=== PATIENT | male | born 1945 | race Caucasian/White ===

== ENCOUNTER 2016-07-17 03:34 | Inpatient (IN) | payer OTHER ==
[~2016-07-17] VITALS: Ht 175.3 cm; Wt 150.6 kg
--- NOTE | 2016-07-17 03:37 | ED DYSPNEA/ASTHMA COMPLAINT ---
History of Present Illness General Chief Complaint: Dyspnea (COPD, CHF, Other) Stated Complaint: BIBA DIFF BREATHING Source: patient, old records, EMS Exam Limitations: no limitations Vital Signs & Intake/Output Vital Signs & Intake/Output Vital Signs Date Time Temp Pulse Resp B/P B/P Pulse O2 O2 Flow FiO2 Mean Ox Delivery Rate 07/18 527 98.7 138 18 128/85 91 Ventilator 45% 07/17 0453 20 95 Venti Mask 45% 07/179 99 Part 60% ReBreather 07/17 404 138 158/113 07/17 0346 97.5 128 22 184/96 99 Part 60% ReBreather Allergies Coded Allergies: meperidine (From DEMEROL) (Intermediate, NAUSEA 07/17/16) penicillin G (Intermediate, NAUSEA 07/17/16) Reconcile Medications Diltiazem HCl (Diltiazem 24HR ER) 120 MG CAP.ER.24H 1 CAP PO DAILY AFIB ( Reported) Furosemide 20 MG TABLET 1.5 TAB PO DAILY WATER PILL (Reported) Losartan Potassium 25 MG TABLET 1 TAB PO DAILY HTN (Reported) Metoprolol Succinate 100 MG TAB.ER.24H 1 TAB PO DAILY HTN (Reported) Rivaroxaban (Xarelto) 20 MG TABLET 1 TAB PO DAILY BLOOD THINNER (Reported) with food Triage Nurses Notes Reviewed? yes Onset: Gradual Duration: day(s):, getting worse, waxing and waning Timing: recent history Severity: moderate, severe Activities at Onset: none Prior Episodes/Possible Cause: occasional episodes Modifying Factors: Worsens With: movement. HPI: 71 yo gentleman h/o afib, chf, copd, presents with tachypnea, breathlessness, shortness of breath since yesterday. "It was really bad... I can't even walk... And I can't breathe if I lie flat.... It got really bad tonight." The medics noted that he was tripoding, breathless, unable to speak in complete sentences. He notes no fever, chills, nausea, vomiting, diarrhea, chest pain. Past History Travel History Traveled to [place] past 21 day No Medical History Any Pertinent Medical History? see below for history Cardiovascular: AFIB, CHF, hypertension, hyperlipidemia Endocrine: diabetes Surgical History Surgical History: non-contributory Psychosocial History Who do you live with Father Services at Home None What is your primary language Icelandic Family History Hx Contributory? No Review of Systems Review of Systems Constitutional: Reports: no symptoms. EENTM: Reports: no symptoms. Respiratory: Reports: no symptoms. Cardiovascular: Reports: no symptoms. GI: Reports: no symptoms. Genitourinary: Reports: no symptoms. Musculoskeletal: Reports: no symptoms. Skin: Reports: no symptoms. Neurological/Psychological: Reports: no symptoms. Hematologic/Endocrine: Reports: no symptoms. Immunologic/Allergic: Reports: no symptoms. All Other Systems: Reviewed and Negative Physical Exam Physical Exam General Appearance: well developed/nourished, moderate distress Head: atraumatic, normal appearance Eyes: Bilateral: normal appearance. Ears, Nose, Throat: normal pharynx Neck: normal inspection Respiratory: decreased breath sounds Cardiovascular: regular rate/rhythm Gastrointestinal: normal bowel sounds, soft, non-tender Extremities: 2-3+ pedal edema symmetrical Neurologic/Psych: no motor/sensory deficits, awake, alert, oriented x 3 Skin: intact, normal color, cyanosis Core Measures ACS in differential dx? No Severe Sepsis Present: No Septic Shock Present: No Progress Differential Diagnosis: asthma, bronchitis, CHF, COPD, afib with rapid ventricular response Plan of Care: Orders Procedure Date/time Status Nothing by Mouth 07/17 B Active EKG 07/17 1600 Active EKG 07/17 1000 Active Pathway - chart 07/17 05 Active House Staff 07/17 0522 Active Patient Data 07/17 0522 Active LOWER RESPIRATORY CULTURE 07/17 0512 Active BLOOD CULTURE 07/17 05 Active Patient Data 07/17 0500 Active Saline Lock 07/17 0455 Active Misc Message 07/17 0455 Active ED Holding Orders 07/17 0455 Active Admit to inpatient 07/17 0455 Active Vital Signs 07/17 0455 Active Code Status 07/17 0455 Active Ku, Insertion/Removal/Asses 07/17 0413 Active CULTURE,URINE 07/17 0413 Active URINALYSIS 07/17 0413 Complete FingerStick- Glucose 07/17 0409 Active EKG 07/17 0348 Active ARTERIAL BLOOD GAS (GEN) 07/17 0344 Active TROPONIN LEVEL 07/17 0337 Complete PARTIAL THROMBOPLASTIN TIME 07/17 0337 Complete PROTHROMBIN TIME 07/17 0337 Complete COMPREHENSIVE METABOLIC PANEL 07/17 0337 Complete CBC WITHOUT DIFFERENTIAL 07/17 0337 Complete B-TYPE NATRIURETIC PEP (BNP) 07/17 0337 Complete TRC EVALUATION (GEN) 07/17 UNK Active Saline Lock 07/17 UNK Active Weight 07/17 UNK Active VTE Mechanical Prophylaxis 07/17 UNK Active Vital Signs 07/17 UNK Active Telemetry/Body Team Member 07/17 UNK Active Intake & Output 07/17 UNK Active Current Medications Sig/Serafin Start time Last Medication Dose Stop Time Status Admin Diltiazem HCl 125 MG Q12H 07/17 0400 AC 07/17 (Cardizem DRIP) 0442 Sodium Chloride 100 ML (Normal Saline 0.9%) Laboratory Tests 07/17/16 0428: Urinalysis LIGHT H, Urine Color YEL, Urine Clarity CLEAR, Urine pH 6.0, Ur Specific [place] 1.015, Urine Protein 100 H, Urine Ketones NEG, Urine Nitrite NEG, Urine Bilirubin NEG, Urine Urobilinogen 0.2, Ur Leukocyte Esterase NEG, Ur Microscopic SEDIMENT EXAMINED, Urine RBC 5-10 H, Urine WBC 1-3 H, Urine Bacteria FEW H, Urine Hemoglobin MOD H, Urine Glucose NEG 07/17/16 0345: pH 7.42, pCO2 31 L, pO2 134 H, HCO3 19 L, ABG O2 Sat (Measured) 97.0, P-50 ( Temp Corrected) Y, Carboxyhemoglobin 1.1 L, O2 Concentration % 60%, Temperature 97.5, O2 Delivery Method PRB, Phlebotomy Draw Site RIGHT RADIAL 07/17/16 034: Anion Gap 16, Estimated GFR > 60, BUN/Creatinine Ratio 14.5, Glucose 153 H, Calcium 9.2, Total Bilirubin 0.9, AST 40, ALT 45, Alkaline Phosphatase 147 H, Troponin I < 0.01, Enm-R-Aydcporpxpd Pept 688 H, Total Protein 8.3 H, Albumin 4.3, Globulin 4.0, Albumin/Globulin Ratio 1.1, PT 17.5 H, INR 1.68 H, APTT 41 H, CBC w Diff MAN DIFF ORDERED, RBC 6.01, MCV 79.3 L, MCH 25.6 L, RDW 18.3 H, MPV 6.6 L, Gran % 84.9 H, Lymphocytes % 8.4 L, Monocytes % 5.9, Eosinophils % 0.5, Basophils % 0.3, Absolute Granulocytes 14.6 H, Absolute Lymphocytes 1.4, Absolute Monocytes 1.0 H, Absolute Eosinophils 0.1, Absolute Basophils 0, Platelet Estimate INCREASED, Normocytic RBCs VERIFIED, Normochromic RBCs VERIFIED, PUBS MCHC 32.3 L Microbiology 07/18 511 LOWER RESP: Respiratory Culture - ORD 07/18 511 LOWER RESP: Gram Stain - ORD 07/18 511 BLOOD: Blood Culture - ORD 07/18 511 BLOOD: Blood Culture - ORD 07/17 0428 URINE ROUT: Urine Culture - RECD Diagnostic Imaging: Viewed by Me: Radiology Read. Discussed w/RAD: Radiology Read. CXR Impression: volume overload, cannot rule out infectious process. full report below Initial ED EKG: A. fib with rapid ventricular response Comments: PATIENT: ROSEMARY MORENO PRESENT AGE: 71 PATIENT ACCOUNT NO: [id number] : 46 LOCATION: [facility] ORDERING PHYSICIAN: ALLY JIMENEZ MD SERVICE DATE: 07/17/16 EXAM TYPE: RAD - XRY-PORTABLE CHEST XRAY EXAMINATION: XR PORTABLE CHEST CLINICAL INFORMATION: Dyspnea COMPARISON: 01/02/2015 TECHNIQUE: Portable frontal view of the chest was obtained. FINDINGS: Low lung volumes. The left hemidiaphragm is obscured likely from a combination of pleural effusion and airspace opacity. Small right pleural effusion. Central vascular prominence. Mild interstitial prominence. No pneumothorax. The cardiac silhouette appears enlarged. IMPRESSION: Findings are most suggestive of fluid overload with bilateral pleural effusions, left greater than right. Associated airspace opacities could represent alveolar edema, although infectious process is not excluded. DICTATED BY: CHERRI LYNCH MD DATE/TIME DICTATED:07/17/16405 PUSHER RUNNER:MYRON DATE/TIME TRANSCRIBED:07/17/16405 CONFIDENTIAL, DO NOT COPY WITHOUT APPROPRIATE AUTHORIZATION. <Electronically signed in Other Vendor System> SIGNED BY: CHERRI LYNCH MD 07/17 041 Departure Departure Disposition: STILL A PATIENT Condition: Stable Clinical Impression Primary Impression: CHF (congestive heart failure) Secondary Impressions: Atrial fibrillation with rapid ventricular response Referrals: YESENIA YUNG DO (PCP/Family) Departure Forms: Customer Survey General Discharge Information Admission Note Spoke With: JOSE MONZON MD Documentation of Exam: Documentation of any treatments & extenuating circumstances including Concerns Regarding Discharge (functional status, medication knowledge or non-compliance, living conditions, etc.) that warrant an admission rather than observation: Patient With evidence of volume overload as well as atrial fibrillation with rapid ventricular response. Given his history I think this is most consistent with CHF with concomitant A. fib with rapid ventricular response. He has no fever cough or phlegm. I do not believe he has pneumonia at this point. However, I would follow his temperature curve and symptoms. No need for heparin since he is artery on an anticoagulant. Cards consult this morning. Critical Care Note Critical Care Note Critical Care Time: 30-74 min Comments: pt on nitrates, diltiazem drip, lasix iv. 100% nrb initally.... weaned down to facemask, 40%
[2016-07-17 03:55] LABS: ABSOLUTE BASOPHIL COUNT 0 /CUMM (0.0-0.2); ABSOLUTE EOSINOPHIL COUNT 0.1 /CUMM (0.0-0.7); ABSOLUTE GRANULOCYTE CT 14.6 /CUMM (1.4-6.5); ABSOLUTE LYMPH COUNT 1.4 /CUMM (1.2-3.4); BASOPHIL % 0.3 % (0.0-2.0); EOSINOPHIL % 0.5 % (0-5); GRANULOCYTE % 84.9 % (42.2-75.2); HEMATOCRIT 47.7 % (42-52); MEAN CORPUSCULAR HGB 25.6 PG (27.0-31.0); MEAN CORPUSCULAR HGB CONC 32.3 G/DL (33.0-37.0); MEAN CORPUSCULAR VOLUME 79.3 FL (80.0-94.0); MEAN PLATELET VOLUME 6.6 FL (7.4-10.4); PLATELET COUNT 459 /CUMM (130-400); RBC DISTRIBUTION WIDTH 18.3 % (11.5-14.5); RED BLOOD CELL CT 6.01 /CUMM (4.70-6.10); WHITE BLOOD CELL COUNT 17.2 /CUMM (4.8-10.8)
--- NOTE | 2016-07-17 03:58 | NUR ---
PT BIBA FROM HOME C/O DIFFICULTY BREATHING. PER MEDIC PT STATES THAT HE USUALLY HAS DIFFICULTY BREATHING AND USUALLY WILL GO BACK TO SLEEP BUT TONIGHT PT COULD NOT CATCH HIS BREATH. PT DENIES CP. SANTIAGO SOLANO ESTABLISHED IV ACCESS LH#20. LABS DRAWN AND SENT ([facility], [place], [facility] ,[facility]) BS [address] JIMENEZ AT BEDSIDE FOR EVAL, PT PLACED ON A PARTIAL NON-REBREATHER AT 60% PER RT JAMESON. PTS AT BEDSIDE.
[2016-07-17 04:03] LABS: PT 17.5 SEC (9.4-12.5); PTT 41 SEC (25-37)
--- NOTE | 2016-07-17 04:09 | NUR ---
PT MEDICATED BY SANTIAGO SOLANO WITH 80MG IV LASIX AND 2GM NITRO BID ON LEFT CHEST PER EMAR
--- NOTE | 2016-07-17 04:11 | RADIOLOGY REPORT ---
EXAMINATION: XR PORTABLE CHEST CLINICAL INFORMATION: Dyspnea COMPARISON: 01/02/2015 TECHNIQUE: Portable frontal view of the chest was obtained. FINDINGS: Low lung volumes. The left hemidiaphragm is obscured likely from a combination of pleural effusion and airspace opacity. Small right pleural effusion. Central vascular prominence. Mild interstitial prominence. No pneumothorax. The cardiac silhouette appears enlarged. IMPRESSION: Findings are most suggestive of fluid overload with bilateral pleural effusions, left greater than right. Associated airspace opacities could represent alveolar edema, although infectious process is not excluded.
--- NOTE | 2016-07-17 04:18 | NUR ---
#18 SUDANESE HAMILTON INSERTED WITH 700ML CLEAR YELLOW URINE OUTPUT.
[2016-07-17] MEDS ORDERED: METOPROLOL SUC100 M2 PO (04:19)
[2016-07-17] MEDS ORDERED: XARELTO20 M2 PO (04:19)
[2016-07-17] MEDS ORDERED: DILTIAZEM 24HR120 MG PO (04:20)
[2016-07-17] MEDS ORDERED: LOSARTAN POTASS25 M1 PO (04:20)
[2016-07-17] MEDS ORDERED: FUROSEMIDE40 M1 PO (04:21)
--- NOTE | 2016-07-17 04:25 | NUR ---
URINE TRIO SENT TO LAB BY TAMIA BARROW
--- NOTE | 2016-07-17 04:42 | NUR ---
PT MEDICATED WITH A CARDIZEM DRIP 125MG @10ML/HR PER EMAR.
--- NOTE | 2016-07-17 04:51 | NUR ---
RESPIRATORY THERAPY NOTE: DECREASED FIO2 FROM 60% VIA PRB TO 45% VIA V/M.
--- NOTE | 2016-07-17 05:19 | History & Physical ---
SHONNA BETTENCOURT,[facility] 07/17/16 0519: General Information and HPI MD Statement: I have seen and personally examined ROSEMARY MORENO and documented this H&P. The patient is a 71 year old M who presented with a patient stated chief complaint of [shortness of breath]. Source of Information: patient, family History of Present Illness: Patient is a 71 year old make with PMH of atrial fibrillation on Xarelto, chronic diastolic HF, HTN, HLD, DM type 2 (not compliant with medication), morbid obesity, bladder stone, who has come to the ED after 4 days of progressively worsening shortness of breath, both on exertion and at rest, aggravated when lying flat, associated with increased lower extremity edema, also reported dizziness of one day, with no LOC or falls. Per the patient's at bedside, patient is unable to move more than a few steps due to severe SOB. Patient denies any chest pain or palpitation. Denies any recent symptoms of upper respiratory tract infection, no fever or chills, minimal coughing but no sputum production. Patient is minimally active at home, lives with , grand daughter and grand son. He uses walker at home for ambulation, his grand daughter does the cooking and pays attention to his food (to be low sugar and low sodium). Patient follows up with Dr. Reynolds and was supposed to see him tomorrow in the office. He does not see any other specialists. Patient takes Xarelto daily, is compliant with home medications except for diabetes control ( stopped taking metformin as it caused diarrhea and he was unable to set up appointment with his PCP - Dr. Yung). Patient also reports he has gout but it is not clear if he was given treatment and whether the diagnosis was confirmed. Currently does not report any joint pain. Allergies/Medications Allergies: Coded Allergies: meperidine (From DEMEROL) (Intermediate, NAUSEA 07/17/16) penicillin G (Intermediate, NAUSEA 07/17/16) Home Med list Diltiazem HCl (Diltiazem 24HR ER) 120 MG CAP.ER.24H 1 CAP PO DAILY AFIB ( Reported) Furosemide 20 MG TABLET 1.5 TAB PO DAILY WATER PILL (Reported) Losartan Potassium 25 MG TABLET 1 TAB PO DAILY HTN (Reported) Metoprolol Succinate 100 MG TAB.ER.24H 1 TAB PO DAILY HTN (Reported) Rivaroxaban (Xarelto) 20 MG TABLET 1 TAB PO DAILY BLOOD THINNER (Reported) with food Past History Travel History Traveled to [place] past 21 day No Medical History Cardiovascular: AFIB, diastolic CHF, hypertension Endocrine: diabetes, obesity Surgical History Surgical History: non-contributory Past Family/Social History Family History Relations & Conditions if any Relation not specified for: *No pertinent family history Psychosocial History Services at Home: None Smoking Status: Former Smoker (1-2 pack/day, quit 15 yrs ago) ETOH Use: denies use Illicit Drug Use: denies illicit drug use Review of Systems Review of Systems Constitutional: Reports: weakness. Denies: chills, fever. EENTM: Reports: no symptoms. Cardiovascular: Reports: orthopena, peripheral edema. Denies: chest pain, palpitations, syncope. Respiratory: Reports: orthopnea, short of breath. Denies: cough, sputum production, stridor, wheezing. GI: Denies: abdominal pain, nausea, vomiting. Genitourinary: Reports: no symptoms. Musculoskeletal: Reports: no symptoms. Skin: Reports: no symptoms. Neurological/Psychological: Reports: no symptoms. Hematologic/Endocrine: Reports: no symptoms. Exam & Diagnostic Data Last 24 Hrs of Vital Signs/I&O Vital Signs Date Time Temp Pulse Resp B/P B/P Pulse O2 O2 Flow FiO2 Mean Ox Delivery Rate 07/17 0644 96.3 119 18 117/70 94 Venti Mask 45% 07/17 0528 98.7 138 18 128/85 91 Ventilator 45% 07/17 0453 20 95 Venti Mask 45% 07/17 0409 99 Part 60% ReBreather 07/17 0405 138 158/113 07/17 0346 97.5 128 22 184/96 99 Part 60% ReBreather Intake & Output 07/17 0800 07/17 0000 07/16 1600 Intake Total Output Total 2900 Balance -2900 Output, Urine 2900 Patient 167.829 kg Weight Weight Reported by Patient Measurement Method Physical Exam General Appearance Alert, Oriented X3, Cooperative, Moderate Distress Skin No Significant Lesion Skin Temp/Moisture Exam: Warm/Dry Sepsis Skin Exam (color): Normal for Ethnicity HEENT Atraumatic, EOMI, Mucous Membr. moist/pink, pupild equal and reactive to light Neck Supple, JVD elevated at the level of the jaw Cardiovascular Normal S1, Normal S2, distant heart sounds, irregular, no murmur Lungs decreased air movement and decreased breath sounds, no wheezing and no rhonchi, no crackles Abdomen Normal Bowel Sounds, Soft Neurological Normal Speech, Normal Tone Extremities 2+ pitting edema on bilaterall lower extremities Vascular Pulses Symmetrical Last 24 Hrs of Labs/Josep: Laboratory Tests 07/17/16 0609: D-Dimer Cancelled 07/17/16 0428: Urinalysis LIGHT H, Urine Color YEL, Urine Clarity CLEAR, Urine pH 6.0, Ur Specific Liberty 1.015, Urine Protein 100 H, Urine Ketones NEG, Urine Nitrite NEG, Urine Bilirubin NEG, Urine Urobilinogen 0.2, Ur Leukocyte Esterase NEG, Ur Microscopic SEDIMENT EXAMINED, Urine RBC 5-10 H, Urine WBC 1-3 H, Urine Bacteria FEW H, Urine Hemoglobin MOD H, Urine Glucose NEG 07/17/16 0345: pH 7.42, pCO2 31 L, pO2 134 H, HCO3 19 L, ABG O2 Sat (Measured) 97.0, P-50 ( Temp Corrected) Y, Carboxyhemoglobin 1.1 L, O2 Concentration % 60%, Temperature 97.5, O2 Delivery Method PRB, Phlebotomy Draw Site RIGHT RADIAL 07/17/16 0340: Anion Gap 16, Estimated GFR > 60, BUN/Creatinine Ratio 14.5, Glucose 153 H, Uric Acid 9.5 H, Calcium 9.2, Total Bilirubin 0.9, AST 40, ALT 45, Alkaline Phosphatase 147 H, Troponin I < 0.01, Kbj-Q-Zcztqbedcla Pept 688 H, Total Protein 8.3 H, Albumin 4.3, Globulin 4.0, Albumin/Globulin Ratio 1.1, PT 17.5 H, INR 1.68 H, APTT 41 H, D-Dimer 339 H, CBC w Diff MAN DIFF ORDERED, RBC 6.01, MCV 79.3 L, MCH 25.6 L, RDW 18.3 H, MPV 6.6 L, Gran % 84.9 H, Lymphocytes % 8.4 L, Monocytes % 5.9, Eosinophils % 0.5, Basophils % 0.3, Absolute Granulocytes 14.6 H, Absolute Lymphocytes 1.4, Absolute Monocytes 1.0 H, Absolute Eosinophils 0.1, Absolute Basophils 0, Platelet Estimate INCREASED, Normocytic RBCs VERIFIED, Normochromic RBCs VERIFIED, PUBS MCHC 32.3 L Microbiology 07/18 639 BLOOD: Blood Culture - RECD 07/17 634 BLOOD: Blood Culture - RECD 07/17 610 URINE ROUT: Legionella Antigen - ORD 07/17 610 URINE ROUT: Streptococcus pneumoniae Antigen (M - ORD 07/18 511 LOWER RESP: Respiratory Culture - ORD 07/18 511 LOWER RESP: Gram Stain - ORD 07/17 0428 URINE ROUT: Urine Culture - RECD Diagnostic Data EKG Results Atrial fibrillation, rate of 150, QTC of 500, left axis deviation, Poor R-wave progression. CXR Results SERVICE DATE: 07/17/16 EXAM TYPE: RAD - XRY-PORTABLE CHEST XRAY EXAMINATION: XR PORTABLE CHEST CLINICAL INFORMATION: Dyspnea COMPARISON: 01/02/2015 TECHNIQUE: Portable frontal view of the chest was obtained. FINDINGS: Low lung volumes. The left hemidiaphragm is obscured likely from a combination of pleural effusion and airspace opacity. Small right pleural effusion. Central vascular prominence. Mild interstitial prominence. No pneumothorax. The cardiac silhouette appears enlarged. IMPRESSION: Findings are most suggestive of fluid overload with bilateral pleural effusions, left greater than right. Associated airspace opacities could represent alveolar edema, although infectious process is not excluded. Assessment/Plan Assessment: Patient is a 71 year old male with PMH of atrial fibrillation on Xarelto, chronic diastolic , HTN, HLD, DM type 2 (not compliant with medication), morbid obesity, bladder stone, questionable gout, who came to the ED with progressive SOB on ambulation and at rest, LE edema, orthopnea, with acute worsening of symptoms since 4 days ago and dizziness of one day. Patient is admitted to telemetry for possible CHF exacerbation and for Afib with RVR. Problem list and plan: Shortness of breath, most likely due to CHF exacerbation Underlying (impaired LV relaxation per Echo in 2010). Current CXR suggests pleural effusion, pt also has LE edema, orthopnea, ProBNP of 688. Denies chest pain, reports dizziness. Other etiology: Possible PE, Sudden onset worsening SOB, sedentary lifestyle due to obesity and underling heart failure. also LE edema. D-dimer elevated to 339. ABG: mild respiratory alkalosis. Patient also has a smoking history,50 years 1-2 packs/day and quit 15 years ago. Does not recall any diagnosis of COPD, exam does not have wheezing. * Rule out ACS with serial troponin and EKG * IV lasix BID 40 mg * Echocardiogram * Cardiology consult with Dr. Reynolds * LE doppler to rule out DVT * consider CTA (however Cr slightly elevated to 1.1) * Blood culture, sputum culture, strep. pneumonia and legionella antigens * TRC/Nebs Leukocytosis No fever, no URI symptoms. Reported some chills a few days ago when he slept with windows open. * Continue to monitor vital signs * Repeat CBC and watch off antibiotics Atrial fibrillation EKG consistent with Atrial fibrillation with rate of 150, QTc 500 Patient is on cardizem 120 mg daily and metoprolol 100 mg daily. * started on cardizem drip * continue metoprolol * cardiology consult * continue xarelto DM2 Not taking Metformin (stopped due to side effects) * fingersticks TID AC * novolog sliding scale HTN * continue losartan, metoprolol, furosemide Morbid obesity, HLD Patient reports he gained a lot of weight since he quit smoking 15 years ago. He smoked for almost 50 years 1-2 packs/day * lipid profile * start on atorvastatin (was prescribed statin but reports he never took it) * counseling for weight loss Questionable gout Patient pain in several joints of the LEs, currently absent. Reports he has gout but does not recall if this was diagnosed by a doctor; also he has not taken any medication for a possible gout. * Will check Uric acid * will monitor for signs/symptoms of gout Diet: NPO, patient is on ventimask Pain: mild pain pathway Full code As Ranked By This Provider Problem List: 1. Morbid obesity 2. Paroxysmal atrial fibrillation 3. Atrial fibrillation with rapid ventricular response 4. CHF (congestive heart failure) 5. Dyslipidemia 6. Shortness of breath 7. Hypertension Core Measures/Miscellaneous Acute Coronary Syndrome ACS Diagnosis: No Cerebrovascular Accident CVA/TIA Diagnosis: No Congestive Heart Failure CHF Diagnosis: Yes Date of most recent Echo: 03/07/11 Last Known EF %: 60 Venous Thromboembolism VTE Risk Factors: Acute medical illness, Age > 40 No [facility] VTE prophylaxis d/t: VTE low risk, No contraindications No VTE Pharm Prophylaxis d/t: VTE low risk, No contraindications VTE Diagnosis: No VTE Type: NONE VTE Confirmed by (Test): NONE Severe Sepsis Severe Sepsis Present: No Septic Shock Septic Shock Present: No Miscellaneous Documentation Attending Case Discussed With: KEVIN RODRIGUEZ MD Primary Care Physician: YESENIA YUNG DO Patient sees these Specialists Dr. Reynolds Level of Patient Care: Telemetry YAMINI NOGUEIRA 07/17/16 0536: Resident Review Statement Resident Statement: examined this patient, discussed with summer intern, agreed with summer intern, reviewed EMR data (avail), reviewed images Other Findings: This is a 89-[id number]-vnn-year-old morbidly obese male previous alcoholic, previous smoker (quit 15 years ago), no illicit drug abuse with past medical history of hypertension, hyperlipidemia, gout, diabetes mellitus, atrial fibrillation on rate control with metoprolol and diltiazem and anticoagulation with Xarelto came in with chief complaint of worsening shortness of breath since 4 days prior to admission. The patient says that he did have some shortness of breath at baseline however 4 days prior to admission he suddenly started feeling more short of breath.He said that the shortness of breath initially started getting worse on exertion now was present on sitting as well.He was unable to lie down as this would worsen the shortness of breath. Sitting made him feel better.He did have episodes of paroxysmal nocturnal dyspnea where he had to get up in the middle of the night to catch up some breathing. He denied any chest pain. He said that he noticed that the emergency department that his legs were swelling worse. As per the he has been extremely short of breath however he was avoiding to come to the hospital. Finally they called the EMS and was brought in by ambulance. He denied any chest pain,fever, chills,diarrhea, constipation, abdominal pain, urinary complaints. Vitals on presentation he was afebrile at 97.5, pulse of 128-138, respiratory rate of 22, blood pressure of initially 184/96, later came down to 158/113, he was initially placed on the partial nonrebreather, when we saw him he was on 45% Ventimask with saturations around 95%. ABG : 7.42/31/134/19 Physical exam morbidly obese person in great distress, on BiPAP, short of breath with CVS S1 and S2 present, irregularly irregular rhythm. RS, air entry decreased bilateral lower lung bases, crackles heard bilaterally, no wheezing heard. Per abdomen : Very obese, bowel sounds present, no tenderness, soft nontender. Bilateral lower extremity 2+ edema present urine Swollen right toe noted, mild redness. Significant labs white count of 19.2, no bands, H/H of 15.4/47.7, platelet of 459. Electrolytes within normal limit, BUN/creatinine 16/1.1, glucose of 153. ProBNP elevated at 688, alkaline phosphatase 147. Chest x-ray showed fluid overload with bilateral pleural effusions left more than light associated with airspace opacity, could not completely rule out infection. EKG showed atrial fibrillation with rate of 150, QTC of 500, left axis deviation., Poor R-wave progression. UA showed 1-3 WBCs, few bacteria and moderate hemoglobin. Last echocardiogram was done in 03/07/2014 which showed mild LVH, no diastolic dysfunction and systolic function of 60%. Note patient is allergic to penicillin and has to be an anaphylactic reaction. Meperidine gives nausea. Dr Yung - primary care and Dr. Reynolds is his multimedia services coordinator. He does not see any other doctors. As per the patient he did have an exercise stress test with Dr. Reynolds however does not remember when this was. we will admit the patient to cardiac telemetry floor for treatment of the following problems. Problem #1 shortness of breath most likely secondary to CHF exacerbation, possible pneumonia.Patient has bilateral fluid overload with pleural effusions, proBNP elevated at 688, bilateral pedal edema noted paroxysmal nocturnal dyspnea present on history, most likely the shortness of breath seems to be secondary to CHF exacerbation. * There is a possibility that he might have pneumonia along with that, curb - 65 score noted to be 1. * Other possibility is pulmonary embolus. Patient has mildly elevated creatinine at 1.1. Will check d-dimer and bilateral lower extremity Doppler. Further need for CTA after results of the above tests. * He has a white count with no bands however he does not have any fever, vitals are stable. * Continue treat off antibiotics for now. * Check blood cultures, sputum cultures, strep pneumonia and legionella antigen. * Continue to follow cultures and treat if suspicion for pneumonia. * Continue to monitor intakes and outputs strictly, continue to monitor daily weights, continue IV diuresis with 40 mg of IV Lasix twice a day. * Continue to monitor intakes and outputs and maintain negative fluid balance. * Trend EKg/troponin and r/o ACS. * Repeat Echo Problem #2 history of hypertension. * Continue lisinopril at home dosage. Problem #3 history of hyperlipidemia. * Patient is not very clear if he is taking statin, came history does show statin prescribed however does not show the name of the prescriber. Will need to be clarified. Problem #4 history of atrial fibrillation with RVR. * Patient was noted to be in atrial fibrillation at the emergency department. * Patient was started on IV Cardizem. * IV Cardizem rate was increased to 15 g per mL to keep the heart rate less than 100, ct ot monitor closely. * Continue anticoagulation with Xarelto. * Patient is on by mouth diltiazem 120 mg and metoprolol 100 mg daily for rate control at home. * Cardiology consult with Dr. Reynolds in a.m. Full code. DVT prophylaxis with Xarelto. Heart healthy diet, however the patient is nothing by mouth now as he is on Ventimask. Mild pain pathway. KEVIN PRETTY MD 07/17/16 9018: Attending MD Review Statement Attending Statement Attending MD Statement: examined this patient, discuss w/resident/PA/AIR VICE MARSHAL, agreed w/resident/PA/AIR VICE MARSHAL, discussed with family, reviewed EMR data (avail), discussed with nursing, reviewed images, amended to note Attending Assessment/Plan: The patient is a 71 yo male with/o atrial fibrillation (on Xarelto), chronic preserved ejection fraction CHF, HTN, HL, gout and obesity who presented on the day of admission in the ED with c/o severe dyspnea. He had a recent gout attack involving both feet/ankles and was having difficulty ambulating and was unable to get in to see a physician. He held his furosemide and treated himself with "clifford juice". He presents with 4 day h/o increased dyspnea and edema. In the ED he was noted to be tachycardic (138 HR RVR) in afib and hypoxic. He denied any fever, chest pain, cough or dysuria. Physical Exam: VS: T 97.5, P 138-119, R 22-18, BP 184/96-117/70 (post meds), PO 99% on NRB and 94% on 45% VM HEENT: eyes- PERRLA, EOMI corazon- moist mucosa w/o lesions Neck: + JVD, no bruits Chest: decreased BS diffusely, ? few rales at bases Cor: tachy, irreg, nl S1, S2 Abd: BS+, soft, NT Ext: 2+ edema bilat, pulses 2+ Neuro: alert & oriented x 3, non-focal Labs/Tests- as above Impression/Plan: #Acute on Chronic Preserved Ejection Fraction CHF- secondary to atrial fibrillation with RVR. Patient had held his furosemide at home (due to gout). Plan: Admit to telemetry floor. IV Furosemide (given in ED). I/O's, daily weights as per protocol for CHF. Check serial troponin I's. Cardiology consult with Dr. Reynolds. #Acute Hypoxic Respiratory Failure- secondary to CHF. Plan: Oxygen support and will titrate down as able with pulse ox monitoring. #Atrial Fibrillation- with rapid ventricular response. Plan: Rate control with Cardizem drip (IV) and Metoprolol as per Cardiology. Treat CHF as above. Continue Xarelto. #Essential Hypertension- BP initially elevated, however decreased with meds. Plan: Continue Cardizem/Furosemide/Metoprolol/Lisinopril and follow. #Leukocytosis- may be stress demargination of leukocytes. No clinical infection. Plan: Will obtain cultures as above and follow-up WBC in morning. #Gout- no symptoms at present. Had recent exacerbation in feet/ankles. Plan: Will follow and treat if recurs.
--- NOTE | 2016-07-17 05:30 | NUR ---
HOUSE STAFF IN FOR EVAL
[2016-07-17] MEDS ORDERED: FUROSEMIDE20 M1 PO (05:39)
--- NOTE | 2016-07-17 06:14 | NUR ---
THIS RN SPOKE WITH RESIDENT EUGENIA WHO STATED SHE WOULD LIKE THE CARDIZEM DRIP INCREASED TO 15ML/HR.
--- NOTE | 2016-07-17 06:52 | NUR ---
THIS RN GAVE REPORT TO SANTIAGO LLANES WHO POLITELY ASKED TO SEND THE PT TO THE FLOOR AFTER MORNING REPORT ON TELE UNIT.
--- NOTE | 2016-07-17 07:20 | NUR ---
ASSUMED CARE OF PT PT AWAKE, ALERT AND CONVERSANT WITH NO COMPLAINTS HR FLUCTUATES ON MONITOR BETWEEN 99-134. SAT 94% ON VENTI MASK. US TECH TO COME OVER FOR US LEGS; KATE FROM ECHO CALLED AND INFORMED US IS CURRENTLY IN ROOM - STATES HE WILL GET PATIENT LATER FOR ECHO. AWAITING TRANSPORT TO FLOOR.
--- NOTE | 2016-07-17 07:50 | NUR ---
SPOKE WITH RN MAYO - STATES OK TO BRING PT UPSTAIRS, WHEN US IS COMPLETED. TRANSPORT BOOKED.
--- NOTE | 2016-07-17 08:08 | PN- Student ---
Subjective Subjective: I examined Mr. Conley this morning in the ED and then again on the floor. He states that he is feeling better than he was earlier in the morning and that his breathing is getting easier. He denies chest pain, palpitations, headaches, vision changes, and hearing difficulties. He also has no abdominal pain, nausea, vomiting, or disturbances with bowel movements. His only complaint was slight left shoulder pain that he attributes to bursitis that has been more of a chronic issue for him. Objective Objective: Vital Signs Date Time Temp Pulse Resp B/P B/P Pulse O2 O2 Flow FiO2 Mean Ox Delivery Rate 07/17 0733 98.1 137 22 157/93 94 07/17 0644 96.3 119 18 117/70 94 Venti Mask 45% 07/17 0528 98.7 138 18 128/85 91 Ventilator 45% 07/17 0453 20 95 Venti Mask 45% 07/17 0409 99 Part 60% ReBreather 07/17 0405 138 158/113 07/17 0346 97.5 128 22 184/96 99 Part 60% ReBreather Intake & Output 07/17 1600 07/17 0800 07/17 0000 Intake Total Output Total 2900 Balance -2900 Output, Urine 2900 Patient 370 lb Weight Weight Reported by Patient Measurement Method Telemetry: Admission Labs: ProBNP- 688, Alk. Phos.-147, WBC- 19.2, D-dimer- 339 CXR: fluid overload, bilateral pleural effusions, infection can not be ruled out. EKG: atrial fibrillation w/ rate of 150. QTc- 500, left axis deviation. Venous doppler: normal triflex scan PE: general- alert and oriented x 3, good mental state. No acute distress. HEENT- PEERLA, atraumatic, membranes moist and pink. Neck- obese, no lymphadenopathy, no thyromegaly, midline trachea CV- S1 and S2 heard, rapid irregular rhythm, no murmurs or rubs Chest- labored breathing with decreased breathsounds Abd- bowel sounds heard, soft and non-tender to palpation, percussion normal Skin- warm and well perfused, no lesions noted Ext- 2+ edema in LE bilaterally up to knee, Left shoulder pain around AC joint on palpation (supraspinatus tendonosis or bursitis likely) Neuro- 5/5 strength of UE bilaterally, sensation intact in all 4 extremities Results Results: Laboratory Tests 07/17/16 0609: D-Dimer Cancelled 07/17/16 0428: Urinalysis LIGHT H, Urine Color YEL, Urine Clarity CLEAR, Urine pH 6.0, Ur Specific [place] 1.015, Urine Protein 100 H, Urine Ketones NEG, Urine Nitrite NEG, Urine Bilirubin NEG, Urine Urobilinogen 0.2, Ur Leukocyte Esterase NEG, Ur Microscopic SEDIMENT EXAMINED, Urine RBC 5-10 H, Urine WBC 1-3 H, Urine Bacteria FEW H, Urine Hemoglobin MOD H, Urine Glucose NEG 07/17/16 0345: pH 7.42, pCO2 31 L, pO2 134 H, HCO3 19 L, ABG O2 Sat (Measured) 97.0, P-50 ( Temp Corrected) Y, Carboxyhemoglobin 1.1 L, O2 Concentration % 60%, Temperature 97.5, O2 Delivery Method PRB, Phlebotomy Draw Site RIGHT RADIAL 07/17/16 0340: Anion Gap 16, Estimated GFR > 60, BUN/Creatinine Ratio 14.5, Glucose 153 H, Uric Acid 9.5 H, Calcium 9.2, Total Bilirubin 0.9, AST 40, ALT 45, Alkaline Phosphatase 147 H, Troponin I < 0.01, Nsh-A-Fqoemzvshrl Pept 688 H, Total Protein 8.3 H, Albumin 4.3, Globulin 4.0, Albumin/Globulin Ratio 1.1, PT 17.5 H, INR 1.68 H, APTT 41 H, D-Dimer 339 H, CBC w Diff MAN DIFF ORDERED, RBC 6.01, MCV 79.3 L, MCH 25.6 L, RDW 18.3 H, MPV 6.6 L, Gran % 84.9 H, Lymphocytes % 8.4 L, Monocytes % 5.9, Eosinophils % 0.5, Basophils % 0.3, Absolute Granulocytes 14.6 H, Absolute Lymphocytes 1.4, Absolute Monocytes 1.0 H, Absolute Eosinophils 0.1, Absolute Basophils 0, Platelet Estimate INCREASED, Normocytic RBCs VERIFIED, Normochromic RBCs VERIFIED, PUBS MCHC 32.3 L Microbiology 07/18 639 BLOOD: Blood Culture - RECD 07/17 634 BLOOD: Blood Culture - RECD 07/17 610 URINE ROUT: Legionella Antigen - ORD 07/17 610 URINE ROUT: Streptococcus pneumoniae Antigen (M - ORD 07/18 511 LOWER RESP: Respiratory Culture - ORD 05/11 0512 LOWER RESP: Gram Stain - ORD 07/17 0428 URINE ROUT: Urine Culture - RES Assessment/Plan Assessment: Mr. Conley is a morbidly obese 71 yo white male with a PMHx of a-fib (for which he takes xarelto), chronic diastolic HF (for which he sees Dr. Reynolds), HTN, HLD, type 2 DM (noncompliant w/metformin due to diarrhea), and gout ( patient reported). He also reports a bladder stone that does not cause him any symptoms. He was admitted to cardiac telemetry floor for a 4 day progressively worsening dyspnea at rest and exertion. After moving to the floor he seemed to be feeling a bit better. He is able to take a deep breath now which he couldnt do on admission. He is currently on max dose cardizem yet his heart rate is still tachycardic. Current Medications Sig/Serafin Start time Last Medication Dose Route Stop Time Status Admin Diltiazem HCl 5 MG ONCE ONE 07/17 1030 DC 07/17 IV PUSH 07/17 1031 1045 Diltiazem HCl 125 MG Q8H 07/17 0615 07/17 Sodium Chloride 100 ML IV 0707 Diltiazem HCl 125 MG Q12H 07/17 0400 DC 07/17 Sodium Chloride 100 ML IV 0442 Furosemide 0 .STK-MED ONE 07/17 0752 DC IV Furosemide 40 MG 7:30 AM, & 4:30 PM 07/17 0730 AC 07/17 IV 0815 Furosemide 80 MG ONCE ONE 07/17 0345 DC 07/17 IV 07/17 0346 0350 Furosemide 0 .STK-MED ONE 07/17 0344 DC IV Losartan Potassium 25 MG DAILY 07/17 1000 AC 07/17 PO 1045 Metoprolol Tartrate 5 MG ONCE ONE 07/17 1115 DC 07/17 IV 07/17 1116 1132 Metoprolol Tartrate 50 MG BID 07/17 1033 AC 07/17 PO 1044 Nitroglycerin 0 .STK-MED ONE 07/17 0345 DC TOP Nitroglycerin 2 GM STAT STA 07/17 0338 DC 07/17 TOP 07/17 0339 0350 Plan: During the day the patient had an acute bout of dyspnea and was given an IV push of 40mg lasix. Also had a stat chest xray showing none to slight improvement in pulmonary congestion from this morning. patient is currently in no pain. breathing is improving with diuresis. Will follow recommendations from cardiology as well as continue diuresis. Will schedule echocardiogram. Cardiology recommendations: -continue lasix IV 40 mg Q12 -monitor I&Os -continue cardizem drip 125mg/100ml Q8 IV -give metoprolol 5mg IV once followed by 50 mg PO BID -continue xarelto for anticoagulation -echocardiogram -daily BMP Problem List: 1. Progressive Dyspnea secondary to diastolic HF- continue lasix therapy 40 mg IV Q8 (BUN-16, Nurse Midwife/Clinical Instructor-1.1) 2. chronic diastolic HF- Echocardiogram and continue to diurese 3. Atrial fibrillation w/RVR- continue metoprolol and cardizem as above, continue anticoagulation and monitor INR. 4. HTN- continue home medications 5. Hyperlipidemia- refer to home dose of statin therapy 6. Type 2 DM- monitor blood glucose, insulin therapy as needed 7. Morbid Obesity- discuss healthy eating habits and possible diet and exercise options 8. Gout- symptoms resolving, continue to monitor. Diet: Heart healthy, NPO on ventimask DVT prophylaxis: patient on xarelto Code status: full code
--- NOTE | 2016-07-17 08:14 | NUR ---
MED WITH LASIX PER MAY. BP PRIOR 157/83. SAT REMAINS 94-96% ON VENTI MASK. HR REMAINS 105-128 AT THIS TIME DENIES COMPLAINTS. AWAITING TRANSPORT.
--- NOTE | 2016-07-17 08:36 | ULTRASOUND REPORT ---
EXAMINATION: US TRIPLEX OF LOWER EXTREMITIES, BILATERAL CLINICAL INFORMATION: Shortness of breath. Leg swelling. COMPARISON: None TECHNIQUE: Color-flow triplex imaging with spectral analysis and compression Doppler were performed on the lower extremities. FINDINGS: Respiratory variation, normal compression and augmented flow are noted throughout the lower extremities. The visualized common femoral vein, superficial femoral vein, profunda femoral vein, popliteal vein and midcalf peroneal and posterior tibial venous segments show no evidence of deep venous thrombosis. There is no Allan's cyst. IMPRESSION: Normal triplex scan without evidence of deep venous thrombosis involving the lower extremities.
--- NOTE | 2016-07-17 08:40 | NUR ---
TRANSPORTED TO [facility]-2 ON MONITOR WITH THIS RN PT CONVERSANT AND MAKING JOKES WITH STAFF THROUGHOUT TRANSPORT. HR 112-154 DURING TRANSPORT. 111 ON ARRIVAL TO ROOM. CARDIZEM INFUSING AT 15 ML/HR [place] DRAINING VENTI MASK AT 45%, SAT 96% PRIOR TO TRANSPORT CARE TRANSFERRED TO TELE [employer]BER
[2016-07-17 08:52] VITALS: BP 142/80
--- NOTE | 2016-07-17 10:57 | PN- Cardiology ---
Subjective Subjective: The patient is a 71-year-old male who follows up with me in the office for atrial fibrillation, diabetes mellitus, and diastolic heart failure. He notes that he has not been taking his Lasix recently because of a tach. The gout has resolved. He presents with complaint of worsening shortness of breath over the past few days. The shortness of breath is exacerbated by exertion and by lying flat. He also notes worsening lower extremity edema. He has had recent lightheadedness and dizziness. No chest pain. No cough. No fever or chills. No diaphoresis. No syncope. He was noted in the emergency department to be in atrial fibrillation with rapid ventricular rate, and to have evidence of acute diastolic heart failure exacerbation. Objective Vital Signs and I&Os Vital Signs Date Time Temp Pulse Resp B/P B/P Pulse O2 O2 Flow FiO2 Mean Ox Delivery Rate 07/18 0752 98.8 133 28 142/80 95 Ventilator 45% 07/17 0733 98.1 137 22 157/93 94 07/17 0644 96.3 119 18 117/70 94 Venti Mask 45% 07/17 0528 98.7 138 18 128/85 91 Ventilator 45% 07/17 0453 20 95 Venti Mask 45% 07/17 0409 99 Part 60% ReBreather 07/17 0405 138 158/113 07/17 0346 97.5 128 22 184/96 99 Part 60% ReBreather Intake & Output 07/17 1600 07/17 0800 07/17 0000 05/ 1600 07/16 0800 05 0000 Intake Total Output Total 280 2900 Balance -280 -2900 Output, Urine 280 2900 Patient 370 lb Weight Weight Reported by Patient Measurement Method Physical Exam: Gen: The patient is in no acute distress HEENT: Normal nose, ears, and oropharynx. Pupils equal bilaterally. Conjunctiva normal. Neck: Supple with no JVD, no masses, and no thyromegaly Lungs: Bilateral rales with normal respiratory effort Heart: RRR, S1, S2, 1/6 systolic murmur. 2+ peripheral edema, 1+ pulses in the lower extremities bilaterally Abdomen: Soft, nontender, no masses. No hepatomegaly. No splenomegaly Extremities: No clubbing or cyanosis. Normal muscle strength in the upper and lower extremities Skin: Normal skin turgor with no skin ulcers or lesions noted. Neuro: Cranial nerves intact. Sensation intact Psych: Alert and oriented 3 with appropriate affect Current Medications: Current Medications Sig/Serafin Start time Last Medication Dose Route Stop Time Status Admin Diltiazem HCl 5 MG ONCE ONE 07/17 1030 VT 07/17 IV PUSH 07/17 1031 1045 Diltiazem HCl 125 MG Q8H 07/17 0615 07/17 Sodium Chloride 100 ML IV 0707 Diltiazem HCl 125 MG Q12H 07/17 0400 VT 07/17 Sodium Chloride 100 ML IV 0442 Furosemide 0 .STK-MED ONE 07/17 0752 VT IV Furosemide 40 MG 7:30 AM, & 4:30 PM 07/17 0730 AC 07/17 IV 0815 Furosemide 80 MG ONCE ONE 07/17 0345 DC 07/17 IV 07/17 0346 0350 Furosemide 0 .STK-MED ONE 07/17 0344 VT IV Losartan Potassium 25 MG DAILY 07/17 1000 AC 07/17 PO 1045 Metoprolol Tartrate 50 MG BID 07/17 1033 AC 07/17 PO 1044 Nitroglycerin 0 .STK-MED ONE 07/17 0345 [facility] Nitroglycerin 2 GM STAT STA 07/17 0338 VT 07/17 TOP 07/17 0339 0350 Results Last 48 Hrs of Labs/Mics: Laboratory Tests 07/17/16 0609: D-Dimer Cancelled 07/17/16 0428: Urinalysis LIGHT H, Urine Color YEL, Urine Clarity CLEAR, Urine pH 6.0, Ur Specific [place] 1.015, Urine Protein 100 H, Urine Ketones NEG, Urine Nitrite NEG, Urine Bilirubin NEG, Urine Urobilinogen 0.2, Ur Leukocyte Esterase NEG, Ur Microscopic SEDIMENT EXAMINED, Urine RBC 5-10 H, Urine WBC 1-3 H, Urine Bacteria FEW H, Urine Hemoglobin MOD H, Urine Glucose NEG 07/17/16 0345: pH 7.42, pCO2 31 L, pO2 134 H, HCO3 19 L, ABG O2 Sat (Measured) 97.0, P-50 ( Temp Corrected) Y, Carboxyhemoglobin 1.1 L, O2 Concentration % 60%, Temperature 97.5, O2 Delivery Method PRB, Phlebotomy Draw Site RIGHT RADIAL 07/17/16 0340: Anion Gap 16, Estimated GFR > 60, BUN/Creatinine Ratio 14.5, Glucose 153 H, Uric Acid 9.5 H, Calcium 9.2, Total Bilirubin 0.9, AST 40, ALT 45, Alkaline Phosphatase 147 H, Troponin I < 0.01, Qzc-[id number]-Kfkmlpitneo Pept 688 H, Total Protein 8.3 H, Albumin 4.3, Globulin 4.0, Albumin/Globulin Ratio 1.1, PT 17.5 H, INR 1.68 H, APTT 41 H, D-Dimer 339 H, CBC w Diff MAN DIFF ORDERED, RBC 6.01, MCV 79.3 L, MCH 25.6 L, RDW 18.3 H, MPV 6.6 L, Gran % 84.9 H, Lymphocytes % 8.4 L, Monocytes % 5.9, Eosinophils % 0.5, Basophils % 0.3, Absolute Granulocytes 14.6 H, Absolute Lymphocytes 1.4, Absolute Monocytes 1.0 H, Absolute Eosinophils 0.1, Absolute Basophils 0, Platelet Estimate INCREASED, Normocytic RBCs VERIFIED, Normochromic RBCs VERIFIED, PUBS MCHC 32.3 L Recent Imaging Studies: Chest x-ray: Findings are most suggestive of fluid overload with bilateral pleural effusions, left greater than right. Associated airspace opacities could represent alveolar edema, although infectious process is not excluded. Assessment/Plan Assessment/Plan The patient is a 71-year-old male with history of atrial fibrillation, chronic diastolic heart failure, and gout who presents with acute HFpEF secondary to discontinuing Lasix. He is improving on IV Lasix. He is noted to be in atrial fibrillation with rapid ventricular rate. The ventricular rate remains uncontrolled on maximum dose of Cardizem drip. Plan: * Continue IV Lasix 40 mg every 12 hours * Monitor input and output with daily weights * Continue diltiazem drip * Give metoprolol 5 mg IV 1 followed by 50 mg by mouth twice a day for additional rate control. Of note, the patient is on both metoprolol and diltiazem as an outpatient for rate control. * Continue Xarelto for anticoagulation * Echocardiogram * Basic metabolic profile daily Continue telemetry? Yes
--- NOTE | 2016-07-17 11:02 | Cons- Cardiology ---
See Addendum General Information and HPI Consulting Request Date of Consult: 07/17/16 Requested By: KEVIN PRETTY MD Reason for Consult: CHF History of Present Illness: The patient is a 71-year-old male who follows up with me in the office for atrial fibrillation, diabetes mellitus, and diastolic heart failure. He notes that he has not been taking his Lasix recently because of a tach. The gout has resolved. He presents with complaint of worsening shortness of breath over the past few days. The shortness of breath is exacerbated by exertion and by lying flat. He also notes worsening lower extremity edema. He has had recent lightheadedness and dizziness. No chest pain. No cough. No fever or chills. No diaphoresis. No syncope. He was noted in the emergency department to be in atrial fibrillation with rapid ventricular rate, and to have evidence of acute diastolic heart failure exacerbation. Allergies/Medications Allergies: Coded Allergies: meperidine (From DEMEROL) (Intermediate, NAUSEA 07/17/16) penicillin G (Intermediate, NAUSEA 07/17/16) Home Med List: Diltiazem HCl (Diltiazem 24HR ER) 120 MG CAP.ER.24H 1 CAP PO DAILY AFIB ( Reported) Furosemide 20 MG TABLET 1.5 TAB PO DAILY WATER PILL (Reported) Losartan Potassium 25 MG TABLET 1 TAB PO DAILY HTN (Reported) Metoprolol Succinate 100 MG TAB.ER.24H 1 TAB PO DAILY HTN (Reported) Rivaroxaban (Xarelto) 20 MG TABLET 1 TAB PO DAILY BLOOD THINNER (Reported) with food Current Medications: Current Medications Sig/Serafin Start time Last Medication Dose Route Stop Time Status Admin Diltiazem HCl 5 MG ONCE ONE 07/17 1030 DC 07/17 IV PUSH 07/17 1031 1045 Diltiazem HCl 125 MG Q8H 07/17 0615 AC 07/17 Sodium Chloride 100 ML IV 0707 Diltiazem HCl 125 MG Q12H 07/17 0400 DC 07/17 Sodium Chloride 100 ML IV 0442 Furosemide 0 .STK-MED ONE 07/17 0752 DC IV Furosemide 40 MG 7:30 AM, & 4:30 PM 07/17 0730 AC 07/17 IV 0815 Furosemide 80 MG ONCE ONE 07/17 0345 DC 07/17 IV 07/17 0346 0350 Furosemide 0 .STK-MED ONE 07/17 0344 DC IV Losartan Potassium 25 MG DAILY 07/17 1000 AC 07/17 PO 1045 Metoprolol Tartrate 50 MG BID 07/17 1033 AC 07/17 PO 1044 Nitroglycerin 0 .STK-MED ONE 07/17 0345 [facility] Nitroglycerin 2 GM STAT STA 07/17 0338 DC 07/17 TOP 07/17 0339 0350 Review of Systems Review of Systems: No rash. No tremor. No fever. No chills. All other systems were reviewed, and were noted to be negative. Past History Travel History Traveled to [place] past 21 day No Medical History Cardiovascular: AFIB, diastolic CHF, hypertension Endocrine: diabetes, obesity Surgical History Surgical History: non-contributory Family History Relations & Conditions If Any: Relation not specified for: *No pertinent family history Family History Reviewed? Family history was reviewed with patient, and there are no componentws relevant to the current admission. Psychosocial History Services at Home: None Smoking Status: Former Smoker (1-2 pack/day, quit 15 yrs ago) ETOH Use: denies use Illicit Drug Use: denies illicit drug use Exam & Diagnostic Data Vital Signs and I&O Vital Signs Date Time Temp Pulse Resp B/P B/P Pulse O2 O2 Flow FiO2 Mean Ox Delivery Rate 07/17 1048 Nasal 4.0L Cannula 07/17 1045 129 144/70 07/17 1045 129 144/70 07/17 1044 129 144/70 07/17 0852 98.8 133 28 142/80 95 Ventilator 45% 07/17 0733 98.1 137 22 157/93 94 07/17 0644 96.3 119 18 117/70 94 Venti Mask 45% 07/17 0528 98.7 138 18 128/85 91 Ventilator 45% 07/17 0453 20 95 Venti Mask 45% 07/17 0409 99 Part 60% ReBreather 07/17 0405 138 158/113 07/17 0346 97.5 128 22 184/96 99 Part 60% ReBreather Intake & Output 07/17 1600 07/17 0807/17 0000 07/16 1600 07/16 0807/16 0000 Intake Total Output Total 280 2900 Balance -280 -2900 Output, Urine 280 2900 Patient 370 lb Weight Weight Reported by Patient Measurement Method Physical Exam: Gen: The patient is in no acute distress HEENT: Normal nose, ears, and oropharynx. Pupils equal bilaterally. Conjunctiva normal. Neck: Supple with no JVD, no masses, and no thyromegaly Lungs: Bilateral rales with normal respiratory effort Heart: RRR, S1, S2, 1/6 systolic murmur. 2+ peripheral edema, 1+ pulses in the lower extremities bilaterally Abdomen: Soft, nontender, no masses. No hepatomegaly. No splenomegaly Extremities: No clubbing or cyanosis. Normal muscle strength in the upper and lower extremities Skin: Normal skin turgor with no skin ulcers or lesions noted. Neuro: Cranial nerves intact. Sensation intact Psych: Alert and oriented 3 with appropriate affect Labs/Josep Results: Laboratory Tests 07/17 07/17 0609 0428 Coagulation D-Dimer Cancelled Urines Urinalysis LIGHT H Urine Color (YEL,AMB,STR) YEL Urine Clarity (CLEAR) CLEAR Urine pH (5.0 - 8.0) 6.0 Ur Specific [place] (1.001 - 1.035) 1.015 Urine Protein (NEG,<30 MG/DL) 100 H Urine Ketones (NEG) NEG Urine Nitrite (NEG) NEG Urine Bilirubin (NEG) NEG Urine Urobilinogen (0.1 - 1.0 EU/dl) 0.2 Ur Leukocyte Esterase (NEG) NEG Ur Microscopic SEDIMENT EXAMINED Urine RBC (0 - 5 /HPF) 5-10 H Urine WBC (0 - 2 /HPF) 1-3 H Urine Bacteria (NEG/NONE) FEW H Urine Hemoglobin (NEG) MOD H Urine Glucose (N MG/DL) NEG 07/17 07/17 0345 0340 Blood Gas pH (7.35 - 7.45 PH) 7.42 pCO2 (35 - 45 TORR) 31 L pO2 (80 - 100 TORR) 134 H HCO3 (21 - 28 MEQ/L) 19 L ABG O2 Sat (Measured) (>96.0 %) 97.0 P-50 (Temp Corrected) Y Carboxyhemoglobin (1.5 - 5.0 %) 1.1 L O2 Concentration % 60% Temperature (97.0 - 100.0 FARH) 97.5 O2 Delivery Method PRB Chemistry Sodium (137 - 145 mmol/L) 144 Potassium (3.5 - 5.1 mmol/L) 4.3 Chloride (98 - 107 mmol/L) 107 Carbon Dioxide (22 - 30 mmol/L) 21 L Anion Gap (5 - 16) 16 BUN (9 - 20 mg/dL) 16 Creatinine (0.7 - 1.2 mg/dL) 1.1 Estimated GFR (>60 ml/min) > 60 BUN/Creatinine Ratio (7 - 25 %) 14.5 Glucose (65 - 99 mg/dL) 153 H Uric Acid (3.5 - 8.5 mg/dL) 9.5 H Calcium (8.4 - 10.2 mg/dL) 9.2 Total Bilirubin (0.2 - 1.3 mg/dL) 0.9 AST (17 - 59 U/L) 40 ALT (21 - 72 U/L) 45 Alkaline Phosphatase (< 127 U/L) 147 H Troponin I (<0.11 ng/ml) < 0.01 Suh-U-Lafxtnezrnn Pept (<125 pg/mL) 688 H Total Protein (6.3 - 8.2 g/dL) 8.3 H Albumin (3.5 - 5.0 g/dL) 4.3 Globulin (1.9 - 4.2 gm/dL) 4.0 Albumin/Globulin Ratio (1.1 - 2.2 %) 1.1 Coagulation PT (9.4 - 12.5 SEC) 17.5 H INR (0.90 - 1.17) 1.68 H APTT (25 - 37 SEC) 41 H D-Dimer (70 - 232 ng/ml) 339 H Hematology CBC w Diff MAN DIFF ORDERED WBC (4.8 - 10.8 /CUMM) 17.2 H RBC (4.70 - 6.10 /CUMM) 6.01 Hgb (14.0 - 18.0 G/DL) 15.4 Hct (42 - 52 %) 47.7 MCV (80.0 - 94.0 FL) 79.3 L MCH (27.0 - 31.0 PG) 25.6 L RDW (11.5 - 14.5 %) 18.3 H Plt Count (130 - 400 /CUMM) 459 H MPV (7.4 - 10.4 FL) 6.6 L Gran % (42.2 - 75.2 %) 84.9 H Lymphocytes % (20.5 - 51.1 %) 8.4 L Monocytes % (1.7 - 9.3 %) 5.9 Eosinophils % (0 - 5 %) 0.5 Basophils % (0.0 - 2.0 %) 0.3 Absolute Granulocytes (1.4 - 6.5 /CUMM) 14.6 H Absolute Lymphocytes (1.2 - 3.4 /CUMM) 1.4 Absolute Monocytes (0.10 - 0.60 /CUMM) 1.0 H Absolute Eosinophils (0.0 - 0.7 /CUMM) 0.1 Absolute Basophils (0.0 - 0.2 /CUMM) 0 Platelet Estimate (ADEQUATE) INCREASED Normocytic RBCs VERIFIED Normochromic RBCs VERIFIED PUBS MCHC (33.0 - 37.0 G/DL) 32.3 L Miscellaneous Phlebotomy Draw Site RIGHT RADIAL Diagnostic Data EKG Results EKG tracing is independently reviewed, and reveals atrial fibrillation with ventricular response of 150, poorly progression, ST depression, likely rate related CXR Results Findings are most suggestive of fluid overload with bilateral pleural effusions, left greater than right. Associated airspace opacities could represent alveolar edema, although infectious process is not excluded. Assessment/Plan Assessment/Plan * Continue IV Lasix 40 mg every 12 hours * Monitor input and output with daily weights * Continue diltiazem drip * Give metoprolol 5 mg IV 1 followed by 50 mg by mouth twice a day for additional rate control. Of note, the patient is on both metoprolol and diltiazem as an outpatient for rate control. * Continue Xarelto for anticoagulation * Echocardiogram * Basic metabolic profile daily Consult Acknowledgment - Thank you for your consult request.
[2016-07-17 12:49] VITALS: BP 124/80
--- NOTE | 2016-07-17 13:59 | Admission Certification ---
Admission Certification Certification Statement - As attending physician, I certify that at the time of - admission, based on clinical presentation, severity of - symptoms, need for further diagnostic testing and - therapeutic interventions, and risk of adverse outcomes - without in-hospital treatment, in my clinical assessment, - this patient requires an acute hospital stay for a minimum - of two nights or longer. I have also considered psychsocial - factors such as support system, advanced age, financial - issues, cognitive issues, and failed out-patient treatments, - past re-admission history, safety of patient, and lack of - compliance as applicable. Specific rationale supporting this admission is: The patient presents in rapid atrial fibrillation with volume overload/CHF. Needs admit to telemetry for cardizem, metoprolol and IV Lasix. Cardiology consult/evaluation and serial troponin I levels. Will also evaluation elevated WBC and culture.
--- NOTE | 2016-07-17 14:48 | RADIOLOGY REPORT ---
EXAMINATION: XR PORTABLE CHEST CLINICAL INFORMATION: Dyspnea COMPARISON: Chest x-ray from earlier today TECHNIQUE: Portable frontal view of the chest was obtained. FINDINGS: Assessment is limited due to patient body habitus. Lung volumes are symmetric. There is redemonstrated hazy opacification and interstitial prominence in the perihilar regions bilaterally, similar to possibly slightly improved compared to prior. No gross evidence of pneumothorax. Small pleural effusions are difficult to exclude. The cardiac silhouette remains enlarged. No acute osseous findings are seen. IMPRESSION: Redemonstrated bilateral perihilar opacities suggesting congestion/edema, similar to possibly slightly improved from earlier today.
[2016-07-17 16:01] VITALS: BP 134/88
[2016-07-18 00:59] VITALS: BP 128/82
--- NOTE | 2016-07-18 06:05 | PN- Housestaff ---
See Addendum Subjective Follow-up For: Afib with RVR CHF exacerbation Tele-Events Since Last Visit: Afib with HR 87-128 3 beat Vtach @ 0115 with triplets Subjective: Patient seen and examined at bedside. Still short of breath but feeling much better compared to yesterday. Denies chest pain, palpitations, lightheadedness, dizziness, abdominal pain, n/v/c/d. No acute events reported overnight. Review of Systems Constitutional: Reports: see HPI. Objective Last 24 Hrs of Vital Signs/I&O Vital Signs Date Time Temp Pulse Resp B/P B/P Pulse O2 O2 Flow FiO2 Mean Ox Delivery Rate 07/18 0059 98.7 87 24 128/82 95 Nasal Cannula 07/18 0000 Nasal 4.0L Cannula 07/17 2140 103 118/70 07/17 1601 98.3 103 26 134/88 94 Nasal Cannula 07/17 1600 94 Nasal 4.0L Cannula 07/17 1334 93 Nasal 4.0L Cannula 07/17 1249 124/80 07/17 1132 120 122/66 07/17 1048 Nasal 4.0L Cannula 07/17 1045 129 144/70 07/17 1045 129 144/70 07/17 1044 129 144/70 07/17 0930 94 Venti Mask 45% 07/17 0852 98.8 133 28 142/80 95 Ventilator 45% Intake & Output 07/18 1600 07/18 0800 07/18 0000 Intake Total 105 700 Output Total 550 750 Balance -445 -50 Intake, IV 105 250 Intake, Oral 450 Number 0 Bowel Movements Output, Urine 550 750 Patient 166.015 kg 164.654 kg Weight Weight Bed scale Bed scale Measurement Method Physical Exam General Appearance: Alert, Oriented X3, Cooperative, No Acute Distress Other Physical Findings: Skin No Significant Lesion Skin Temp/Moisture Exam: Warm/Dry Sepsis Skin Exam (color): Normal for Ethnicity HEENT Atraumatic, EOMI, Mucous Membr. moist/pink, pupild equal and reactive to light Neck Supple, JVD elevated at the level of the jaw Cardiovascular Normal S1, Normal S2, distant heart sounds, irregular, no murmur Lungs decreased air movement and decreased breath sounds, no wheezing and no rhonchi, no crackles Abdomen Normal Bowel Sounds, Soft Neurological Normal Speech, Normal Tone Extremities 2+ pitting edema on bilaterall lower extremities Vascular Pulses Symmetrical Current Medications: Current Medications Sig/Serafin Start time Last Medication Dose Route Stop Time Status Admin Acetaminophen 1,000 MG ONCE ONE 07/17 1845 DC 07/17 N/A 1 UNIT IV 07/17 1859 1926 Albuterol Sulfate 3 ML ONCE ONE 07/17 1345 DC 07/17 INH 07/17 1346 1339 Diltiazem HCl 5 MG ONCE ONE 07/17 1030 DC 07/17 IV PUSH 07/17 1031 1045 Diltiazem HCl 125 MG Q8H 07/17 0615 07/17 Sodium Chloride 100 ML IV 2140 Furosemide 40 MG 7:30 AM, & 4:30 PM 07/18 0730 AC IV Furosemide 60 MG 7:30 AM, & 4:30 PM 07/17 1630 DC 07/17 IV 1759 Furosemide 40 MG ONCE ONE 07/17 1345 DC 07/17 IV 07/17 1346 1358 Furosemide 40 MG 7:30 AM, & 4:30 PM 07/17 0730 DC 07/17 IV 0815 Losartan Potassium 25 MG DAILY 07/17 1000 AC 07/17 PO 1045 Metoprolol Tartrate 5 MG ONCE ONE 07/17 1115 DC 07/17 IV 07/17 1116 1132 Metoprolol Tartrate 50 MG BID 07/17 1033 AC 07/17 PO 2140 Ondansetron HCl 4 MG ONCE ONE 07/17 1345 DC 07/17 IV 07/17 1346 1358 Patient Medication 1 ED .STK-MED ONE 07/17 1352 [place] Teaching ED 07/17 1353 Rivaroxaban 20 MG 1700 07/17 1700 07/17 PO 1759 Last 24 Hrs of Lab/Josep Results Last 24 Hrs of Labs/Mics: Laboratory Tests 07/18/16 0610: Anion Gap 11, Estimated GFR > 60, BUN/Creatinine Ratio 17.0, CBC w Diff Pending, WBC Pending, RBC Pending, Hgb Pending, Hct Pending, MCV Pending, MCH Pending, RDW Pending, Plt Count Pending, MPV Pending, PUBS MCHC Pending 07/17/16 1640: Troponin I 0.01 07/17/16 1200: Troponin I < 0.01 Assessment/Plan Assessment: Patient is a 71 year old male with PMH of atrial fibrillation on Xarelto, chronic diastolic , HTN, HLD, DM type 2 (not compliant with medication), morbid obesity, bladder stone, questionable gout, who came to the ED with progressive SOB on ambulation and at rest, LE edema, orthopnea, with acute worsening of symptoms since 4 days ago and dizziness of one day. # Acute CHF exacerbation Patient had bilateral fluid overload with pleural effusions, proBNP elevated at 688, bilateral pedal edema noted with paroxysmal nocturnal dyspnea present on history, most consistent with CHF exacerbation. * IV Lasix 60mg BID as per cardio rec * Follow repeat echo * Cont to apprecaite cardio recs # Atrial fibrillation with RVR EKG on admission consistent with atrial fibrillation with a rate of 150, QTc 500. Patient takes cardizem 120 mg daily and metoprolol 100 mg daily at home. HR is coming down slowly on cardizem drip. * Dcrease cardizem drip at 15mL/hr to 10mL/hr * Cont metoprolol 50mg PO BID * Cont home med Xarelto * Appreciate cardio recs # Elevated D-Dimer In the setting of elevated D-dimer at 339 and respiratory distress, PE was considered a possibility but it is unlikely as Doppler venous is negative and patient is clinically improving on Lasix. * Consider CTA if patient clinically deteriorates # Leukocytosis Most likely reactive in the absence of fever or URI symptoms. Reported some chills a few days ago when he slept with windows open at home but currently denies it. * Continue to monitor vital signs * Monitor off abx * Repeat CBC, trend WBC * Blood culture, sputum culture, strep. pneumonia and legionella antigens - pending * TRC neb tx and oxygen support as needed # Hematuria Patient having hematuria since this morning. Most likely due to wilks cath. * Remove wilks cath * Cont strict I/Os * Check UA # DM2 Reportedly not complaints with home med Metformin (stopped due to side effects) * Novolog SSI with accuchecks * Diabeitic diet # HTN * Continue losartan at home dose * Metoprolol and Lasix as above # Morbid obesity, HLD Patient reports he gained a lot of weight since he quit smoking 15 years ago. 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 Reports he has gout but does not recall if this was diagnosed by a doctor; also he has not taken any medication for a possible gout. * Follow Uric acid - sligtly elevated at 9.5 * Monitor for gout flares - Diabetic diet - Mild pain pathway - DVTppx with Xarelto - Full code Problem List: 1. Benign hypertension 2. Dyslipidemia 3. Morbid obesity 4. Paroxysmal atrial fibrillation 5. Rapid atrial fibrillation 6. CHF (congestive heart failure) 7. Atrial fibrillation with rapid ventricular response 8. Hypertension 9. Shortness of breath Pain Ratin Pain Location: 0 Pain Goal: Remain pain free Pain Plan: Mild path Tomorrow's Labs & Rationales: CBC BEP
--- NOTE | 2016-07-18 07:20 | PN- Student ---
Subjective Subjective: I examined Mr. Conley this morning as he was lying sprawled in his bed. He complains of discomfort with the catheter and says that its hard to find a position that is comfortable for the catheter as well as his breathing. He states that his breathing is better today but that he still feels lousy. He denies any chest pain or palpitations, abdominal pain, N/V, neck pain, LE pain, headaches or vision changes. He also states that he hasnt had a bowel movement but does not feel constipated. Objective Objective: Vital Signs Date Time Temp Pulse Resp B/P B/P Pulse O2 O2 Flow FiO2 Mean Ox Delivery Rate 07/18 0059 98.7 87 24 128/82 95 Nasal Cannula 07/18 0000 Nasal 4.0L Cannula 07/17 2140 103 118/70 07/17 1601 98.3 103 26 134/88 94 Nasal Cannula 07/17 1600 94 Nasal 4.0L Cannula 07/17 1334 93 Nasal 4.0L Cannula 07/17 1249 124/80 07/17 1132 120 122/66 07/17 1048 Nasal 4.0L Cannula 07/17 1045 129 144/70 07/17 1045 129 144/70 07/17 1044 129 144/70 07/17 0930 94 Venti Mask 45% 07/17 0852 98.8 133 28 142/80 95 Ventilator 45% 07/17 0733 98.1 137 22 157/93 94 Intake & Output 07/18 0800 07/18 0000 07/17 1600 Intake Total 105 700 600 Output Total 194 091 8924 Balance - Intake, IV 105 250 Intake, Oral 450 600 Number 0 0 Bowel Movements Output, Urine [phone] Patient 366 lb 363 lb Weight Weight Bed scale Bed scale Measurement Method Telemetry: atrial fibrillation 87-128 with a 3 beat run of v-tach at 0115 today and triplets. Echocardiogram: CONCLUSIONS Technically difficult study. Left ventricular hypertrophy. Left ventricular function poorly visualized, grossly normal. Trace mitral regurgitation. Trace tricuspid regurgitation. PE: general- alert and oriented x 3, good mental state. No acute distress. HEENT- PEERLA, atraumatic, membranes moist and pink. Neck- obese, no lymphadenopathy, no thyromegaly, midline trachea CV- S1 and S2 heard, irregular rhythm, no murmurs or rubs Chest- decreased breathsounds with no crackles heard Abd- bowel sounds heard, soft and non-tender to palpation, percussion normal Skin- warm and well perfused, no lesions noted Ext- 2+ edema in bilateral feet, ALPS have reduced the edema to around his ankles and feet, Left shoulder pain around AC joint on palpation (supraspinatus tendonosis or bursitis likely) Neuro- 5/5 strength of UE bilaterally, sensation intact in all 4 extremities Results Results: Laboratory Tests 07/18/16 0610: Anion Gap 11, Estimated GFR > 60, BUN/Creatinine Ratio 17.0, CBC w Diff NO MAN DIFF REQ, RBC 5.43, MCV 79.6 L, MCH 25.6 L, RDW 18.3 H, MPV 6.9 L, Gran % 75.1, Lymphocytes % 13.6 L, Monocytes % 9.3, Eosinophils % 1.6, Basophils % 0.4 , Absolute Granulocytes 10.5 H, Absolute Lymphocytes 1.9, Absolute Monocytes 1.3 H, Absolute Eosinophils 0.2, Absolute Basophils 0.1, PUBS MCHC 32.1 L 07/17/16 1640: Troponin I 0.01 07/17/16 1200: Troponin I < 0.01 07/17/16 0609: D-Dimer Cancelled 07/17/16 0428: Urinalysis LIGHT H, Urine Color YEL, Urine Clarity CLEAR, Urine pH 6.0, Ur Specific [place] 1.015, Urine Protein 100 H, Urine Ketones NEG, Urine Nitrite NEG, Urine Bilirubin NEG, Urine Urobilinogen 0.2, Ur Leukocyte Esterase NEG, Ur Microscopic SEDIMENT EXAMINED, Urine RBC 5-10 H, Urine WBC 1-3 H, Urine Bacteria FEW H, Urine Hemoglobin MOD H, Urine Glucose NEG 07/17/16 0345: pH 7.42, pCO2 31 L, pO2 134 H, HCO3 19 L, ABG O2 Sat (Measured) 97.0, P-50 ( Temp Corrected) Y, Carboxyhemoglobin 1.1 L, O2 Concentration % 60%, Temperature 97.5, O2 Delivery Method PRB, Phlebotomy Draw Site RIGHT RADIAL 07/17/16 0340: Anion Gap 16, Estimated GFR > 60, BUN/Creatinine Ratio 14.5, Glucose 153 H, Uric Acid 9.5 H, Calcium 9.2, Total Bilirubin 0.9, AST 40, ALT 45, Alkaline Phosphatase 147 H, Troponin I < 0.01, Zpe-T-Jnyuohntgpa Pept 688 H, Total Protein 8.3 H, Albumin 4.3, Globulin 4.0, Albumin/Globulin Ratio 1.1, PT 17.5 H, INR 1.68 H, APTT 41 H, D-Dimer 339 H, CBC w Diff MAN DIFF ORDERED, RBC 6.01, MCV 79.3 L, MCH 25.6 L, RDW 18.3 H, MPV 6.6 L, Gran % 84.9 H, Lymphocytes % 8.4 L, Monocytes % 5.9, Eosinophils % 0.5, Basophils % 0.3, Absolute Granulocytes 14.6 H, Absolute Lymphocytes 1.4, Absolute Monocytes 1.0 H, Absolute Eosinophils 0.1, Absolute Basophils 0, Platelet Estimate INCREASED, Normocytic RBCs VERIFIED, Normochromic RBCs VERIFIED, PUBS MCHC 32.3 L Microbiology 07/18 639 BLOOD: Blood Culture - RECD 07/17 634 BLOOD: Blood Culture - RECD 07/17 610 URINE ROUT: Legionella Antigen - COLB 07/17 610 URINE ROUT: Streptococcus pneumoniae Antigen (M - COLB 07/18 511 LOWER RESP: Respiratory Culture - ORD 07/18 511 LOWER RESP: Gram Stain - ORD 07/18 427 URINE ROUT: Urine Culture - RES Assessment/Plan Assessment: Mr. Conley is a morbidly obese 71 yo white male with a PMHx of a-fib (for which he takes xarelto), chronic diastolic HF (for which he sees Dr. Reynolds), HTN, HLD, type 2 DM (noncompliant w/metformin due to diarrhea), and gout ( patient reported). He also reports a bladder stone that does not cause him any symptoms. He was admitted to cardiac telemetry floor for a 4 day progressively worsening dyspnea at rest and exertion. Patients respiratory status has improved overnight. he is currently on 4L nasal cannula and is saturating at 95%. He has no pain in his body and only complains of discomfort with the catheter. Breath sounds are improving however he still has a dry, non productive cough. He is continuing to diurese well and is being compliant with his use of ALPS which has resulted in a decrease in his peripheral edema. Today's echo was mostly insignificant but was technically difficult, may need a repeat echo done. Current Medications Sig/Serafin Start time Last Medication Dose Route Stop Time Status Admin Acetaminophen 1,000 MG ONCE ONE 07/17 1845 DC 07/17 N/A 1 UNIT IV 07/17 1859 1926 Albuterol Sulfate 3 ML ONCE ONE 07/17 1345 DC 07/17 INH 07/17 1346 1339 Diltiazem HCl 5 MG ONCE ONE 07/17 1030 DC 07/17 IV PUSH 07/17 1031 1045 Diltiazem HCl 125 MG Q8H 07/17 0615 AC 07/17 Sodium Chloride 100 ML IV 2140 Furosemide 60 MG 7:30 AM, & 4:30 PM 07/18 1630 AC IV Furosemide 40 MG 7:30 AM, & 4:30 PM 07/18 0730 DC IV Furosemide 60 MG 7:30 AM, & 4:30 PM 07/17 1630 DC 07/17 IV 1759 Furosemide 40 MG ONCE ONE 07/17 1345 DC 07/17 IV 07/17 1346 1358 Furosemide 40 MG 7:30 AM, & 4:30 PM 07/17 0730 DC 07/17 IV 0815 Losartan Potassium 25 MG DAILY 07/17 1000 AC 07/17 PO 1045 Metoprolol Tartrate 5 MG ONCE ONE 07/17 1115 DC 07/17 IV 07/17 1116 1132 Metoprolol Tartrate 50 MG BID 07/17 1033 AC 07/17 PO 2140 Ondansetron HCl 4 MG ONCE ONE 07/17 1345 DC 07/17 IV 07/17 1346 1358 Patient Medication 1 ED .STK-MED ONE 07/17 1352 [place] Teaching ED 07/17 1353 Rivaroxaban 20 MG 1700 07/17 1700 AC 07/17 PO 1759 Plan: Plan is to continue to diurese patient with lasix. continue to monitor renal function and electrolytes as well as I&Os. Continue anti-arrhythmic medications as well as xarelto for cardiac and DVT prophylaxis. Will schedule PT consult and follow up with cardiology note and recommendations. Problem List: 1. Progressive Dyspnea secondary to diastolic HF- continue lasix therapy 60 mg IV BID (BUN-17, Business Information Analyst-1.0) 2. chronic diastolic HF- Echocardiogram and continue to diurese 3. Atrial fibrillation w/RVR- continue metoprolol and cardizem as above, continue anticoagulation and monitor INR. 4. Leukocytosis- most likely reactive. value has decreased today to 13.9. 5. Elevated D-Dimer- PE unlikely since venous dopler was negative. Respiratory status improving on lasix. 6. HTN- continue Losartan 25mg daily PO 7. Hyperlipidemia- may refer to home dose of statin therapy if initiated 8. Type 2 DM- monitor blood glucose, insulin therapy as needed 9. Morbid Obesity- discuss healthy eating habits and possible diet and exercise options 10. Gout- symptoms resolving, continue to monitor. latest uric acid level was 9.5. Diet: Heart healthy DVT prophylaxis: patient on xarelto Code status: full code
[2016-07-18 08:00] LABS: ABSOLUTE BASOPHIL COUNT 0.1 /CUMM (0.0-0.2); ABSOLUTE EOSINOPHIL COUNT 0.2 /CUMM (0.0-0.7); ABSOLUTE GRANULOCYTE CT 10.5 /CUMM (1.4-6.5); ABSOLUTE LYMPH COUNT 1.9 /CUMM (1.2-3.4); ABSOLUTE MONOCYTE COUNT 1.3 /CUMM (0.10-0.60); BASOPHIL % 0.4 % (0.0-2.0); EOSINOPHIL % 1.6 % (0-5); GRANULOCYTE % 75.1 % (42.2-75.2); HEMATOCRIT 43.2 % (42-52); MEAN CORPUSCULAR HGB 25.6 PG (27.0-31.0); MEAN CORPUSCULAR HGB CONC 32.1 G/DL (33.0-37.0); MEAN CORPUSCULAR VOLUME 79.6 FL (80.0-94.0); MEAN PLATELET VOLUME 6.9 FL (7.4-10.4); PLATELET COUNT 458 /CUMM (130-400); RBC DISTRIBUTION WIDTH 18.3 % (11.5-14.5); RED BLOOD CELL CT 5.43 /CUMM (4.70-6.10); WHITE BLOOD CELL COUNT 13.9 /CUMM (4.8-10.8)
[2016-07-18 08:12] VITALS: BP 142/72
--- NOTE | 2016-07-18 11:07 | PN- Cardiology ---
Objective Vital Signs and I&Os Vital Signs Date Time Temp Pulse Resp B/P B/P Pulse O2 O2 Flow FiO2 Mean Ox Delivery Rate 07/18 0930 77 142/72 07/18 0930 77 142/72 07/18 0812 97.9 77 24 142/72 94 Nasal 4.0L Cannula 07/18 0059 98.7 87 24 128/82 95 Nasal Cannula 07/18 0000 Nasal 4.0L Cannula 07/17 2140 103 118/70 07/17 1601 98.3 103 26 134/88 94 Nasal Cannula 07/17 1600 94 Nasal 4.0L Cannula 07/17 1334 93 Nasal 4.0L Cannula 07/17 1249 124/80 07/17 1132 120 122/66 Intake & Output 07/18 1600 07/18 0800 07/18 0000 07/17 1600 07/17 0800 07/17 0000 Intake Total 105 700 600 Output Total 953 736 5535 2900 Balance - -2900 Intake, IV 105 250 Intake, Oral 450 600 Number 0 0 Bowel Movements Output, Urine 678 943 9233 2900 Patient 366 lb 363 lb 370 lb Weight Weight Bed scale Bed scale Reported by Patient Measurement Method Current Medications: Current Medications Sig/Serafin Start time Last Medication Dose Route Stop Time Status Admin Acetaminophen 1,000 MG ONCE ONE 07/17 1845 DC 07/17 N/A 1 UNIT IV 07/17 1859 1926 Albuterol Sulfate 3 ML ONCE ONE 07/17 1345 DC 07/17 INH 07/17 1346 1339 Diltiazem HCl 125 MG Q8H 07/17 0615 r 07/18 Sodium Chloride 100 ML IV 0930 Furosemide 60 MG 7:30 AM, & 4:30 PM 07/18 1630 DC IV Furosemide 60 MG 7:30 AM, & 4:30 PM 07/18 0915 AC 07/18 IV 0930 Furosemide 40 MG 7:30 AM, & 4:30 PM 07/18 0730 DC IV Furosemide 60 MG 7:30 AM, & 4:30 PM 07/17 1630 DC 07/17 IV 1759 Furosemide 40 MG ONCE ONE 07/17 1345 DC 07/17 IV 07/17 1346 1358 Furosemide 40 MG 7:30 AM, & 4:30 PM 07/17 0730 DC 07/17 IV 0815 Losartan Potassium 25 MG DAILY 07/17 1000 AC 07/18 PO 0930 Metoprolol Tartrate 5 MG ONCE ONE 07/17 1115 DC 07/17 IV 07/17 1116 1132 Metoprolol Tartrate 50 MG BID 07/17 1033 AC 07/18 PO 0930 Ondansetron HCl 4 MG ONCE ONE 07/17 1345 DC 07/17 IV 07/17 1346 1358 Patient Medication 1 ED .STK-MED ONE 07/17 1352 DC Teaching ED 07/17 1353 Rivaroxaban 20 MG 1700 07/17 1700 AC 07/17 PO 1759 Trimethobenzamide HCl 200 MG Q6P PRN 07/18 111 UNVr IM Results Last 48 Hrs of Labs/Mics: Laboratory Tests 07/18/16 0610: Anion Gap 11, Estimated GFR > 60, BUN/Creatinine Ratio 17.0, CBC w Diff NO MAN DIFF REQ, RBC 5.43, MCV 79.6 L, MCH 25.6 L, RDW 18.3 H, MPV 6.9 L, Gran % 75.1, Lymphocytes % 13.6 L, Monocytes % 9.3, Eosinophils % 1.6, Basophils % 0.4 , Absolute Granulocytes 10.5 H, Absolute Lymphocytes 1.9, Absolute Monocytes 1.3 H, Absolute Eosinophils 0.2, Absolute Basophils 0.1, PUBS MCHC 32.1 L 07/17/16 1640: Troponin I 0.01 07/17/16 1200: Troponin I < 0.01 07/17/16 0609: D-Dimer Cancelled 07/17/16 0428: Urinalysis LIGHT H, Urine Color YEL, Urine Clarity CLEAR, Urine pH 6.0, Ur Specific [place] 1.015, Urine Protein 100 H, Urine Ketones NEG, Urine Nitrite NEG, Urine Bilirubin NEG, Urine Urobilinogen 0.2, Ur Leukocyte Esterase NEG, Ur Microscopic SEDIMENT EXAMINED, Urine RBC 5-10 H, Urine WBC 1-3 H, Urine Bacteria FEW H, Urine Hemoglobin MOD H, Urine Glucose NEG 07/17/16 0345: pH 7.42, pCO2 31 L, pO2 134 H, HCO3 19 L, ABG O2 Sat (Measured) 97.0, P-50 ( Temp Corrected) Y, Carboxyhemoglobin 1.1 L, O2 Concentration % 60%, Temperature 97.5, O2 Delivery Method PRB, Phlebotomy Draw Site RIGHT RADIAL 07/17/16 0340: Anion Gap 16, Estimated GFR > 60, BUN/Creatinine Ratio 14.5, Glucose 153 H, Uric Acid 9.5 H, Calcium 9.2, Total Bilirubin 0.9, AST 40, ALT 45, Alkaline Phosphatase 147 H, Troponin I < 0.01, Svp-W-Awihymazfyn Pept 688 H, Total Protein 8.3 H, Albumin 4.3, Globulin 4.0, Albumin/Globulin Ratio 1.1, PT 17.5 H, INR 1.68 H, APTT 41 H, D-Dimer 339 H, CBC w Diff MAN DIFF ORDERED, RBC 6.01, MCV 79.3 L, MCH 25.6 L, RDW 18.3 H, MPV 6.6 L, Gran % 84.9 H, Lymphocytes % 8.4 L, Monocytes % 5.9, Eosinophils % 0.5, Basophils % 0.3, Absolute Granulocytes 14.6 H, Absolute Lymphocytes 1.4, Absolute Monocytes 1.0 H, Absolute Eosinophils 0.1, Absolute Basophils 0, Platelet Estimate INCREASED, Normocytic RBCs VERIFIED, Normochromic RBCs VERIFIED, PUBS MCHC 32.3 L
--- NOTE | 2016-07-18 12:02 | ECHOCARDIOGRAM REPORT ---
ROSEMARY MORENO Age: 71 : 1945 Gender: M Exam Date: 07/17/2016 10:57 Exam Location: [address] Ht (in): 70 Wt (lb): 370 BSA: 2.97 BP: 157 / 93 Ordering Physician: YAMINI NOGUEIRA MD Referring Physician: YAMINI NOGUEIRA MD Technologist: Doug Whitehead [facility] Room Number: 174-2 Indications: AFIB/FLUTTER Rhythm: Sinus Technical Quality: Good FINDINGS Left Ventricle Left ventricular function poorly visualized, grossly normal. Normal size left ventricle. Left ventricular hypertrophy. Right Ventricle Normal right ventricular size and function. Right Atrium Normal right atrial size. Left Atrium Normal left atrial size. Mitral Valve Mild mitral annular calcification. Trace mitral regurgitation. Aortic Valve Aortic valve thickened. No aortic stenosis. No aortic regurgitation. Tricuspid Valve Tricuspid valve not well visualized, grossly normal. Trace tricuspid regurgitation. Pulmonic Valve Pulmonic valve not well visualized, grossly normal. Pericardium No pericardial effusion. Great Vessels Normal size aortic root. CONCLUSIONS Technically difficult study. Left ventricular hypertrophy. Left ventricular function poorly visualized, grossly normal. Trace mitral regurgitation. Trace tricuspid regurgitation. Santos Reynolds M.D. (Electronically Signed) Final Date: 18 Jul 2016 12:02 MEASUREMENTS (Male / Female) Normal Values 2D ECHO LV Diastolic Diameter PLAX 5.2 cm 4.2 - 5.9 / 3.9 - 5.3 cm LV Systolic Diameter PLAX 4.1 cm 2.1 - 4.0 cm LV Fractional Shortening PLAX 21.2 % 25 - 46 % LV Ejection Fraction 2D Teich 42.7 % IVS Diastolic Thickness 1.4 cm LVPW Diastolic Thickness 1.5 cm LV Relative Wall Thickness 0.6 RV Internal Dim ED PLAX 2.9 cm 1.9 - 3.8 cm LVOT Diameter 1.9 cm Aortic Root Diameter 3.0 cm LA Systolic Diameter LX 3.4 cm 3.0 - 4.0 / 2.7 - 3.8 cm Ascending Aorta Diameter 3.8 cm DOPPLER AV Peak Velocity 134.0 cm/s AV Peak Gradient 7.2 mmHg AV Mean Velocity 91.9 cm/s AV Mean Gradient 4.0 mmHg AV Velocity Time Integral 22.5 cm LVOT Peak Velocity 83.5 cm/s LVOT Peak Gradient 2.8 mmHg LVOT Mean Velocity 52.4 cm/s LVOT Mean Gradient 1.0 mmHg LVOT Velocity Time Integral 14.5 cm LVOT Stroke Volume 41.1 cm AV Area Cont Eq vti 1.8 cm AV Area Cont Eq pk 1.8 cm MV Peak Velocity 131.0 cm/s MV Peak Gradient 6.9 mmHg MV Mean Velocity 68.4 cm/s MV Mean Gradient 2.0 mmHg Mitral E Point Velocity 125.0 cm/s Mitral A Point Velocity 31.1 cm/s Mitral E to A Ratio 4.0 MV PHT Velocity 134.0 cm/s MV Deceleration [place] 547.0 cm/s MV Pressure Half Time 73.5 ms MV Area PHT 3.0 cm MV Deceleration Time 289.0 ms
--- NOTE | 2016-07-18 12:54 | NUR ---
PT HAS VISIBLE BLOOD IN [facility]. DR CHO MADE AWARE.
[2016-07-18 16:35] VITALS: BP 134/68
[2016-07-19 08:01] VITALS: BP 104/60
--- NOTE | 2016-07-19 08:19 | PN- Housestaff ---
See Addendum Subjective Follow-up For: Afib with RVR CHF exacerbation Subjective: Patient seen and examined at bedside. He reports feeling much better overall with an improvement in dyspnea. Denies chest pain, palpitations, lightheadedness , dizziness, abdominal pain, n/v/c/d. No acute events reported overnight. Review of Systems Constitutional: Reports: see HPI. Objective Last 24 Hrs of Vital Signs/I&O Vital Signs Date Time Temp Pulse Resp B/P B/P Pulse O2 O2 Flow FiO2 Mean Ox Delivery Rate 07/19 0801 97.8 96 20 104/60 97 Nasal 4.0L Cannula 07/19 0000 95 Nasal 4.0L Cannula 07/18 2131 89 116/60 07/18 1635 98.0 65 20 134/68 96 Nasal Cannula 07/18 1600 95 Nasal 4.0L Cannula 07/18 0930 77 142/72 07/18 0930 77 142/72 Intake & Output 07/19 1600 07/19 0800 07/19 0000 Intake Total 480 Output Total 400 1650 Balance -400 -1170 Intake, IV 80 Intake, Oral 400 Output, Urine 400 1650 Patient 164.654 kg Weight Weight Bed scale Measurement Method Physical Exam General Appearance: Alert, Oriented X3, Cooperative, No Acute Distress Other Physical Findings: Skin No Significant Lesion Skin Temp/Moisture Exam: Warm/Dry Sepsis Skin Exam (color): Normal for Ethnicity HEENT Atraumatic, EOMI, Mucous Membr. moist/pink, pupild equal and reactive to light Neck Supple, JVD elevated at the level of the jaw Cardiovascular Normal S1, Normal S2, distant heart sounds, irregular, no murmur Lungs decreased air movement and decreased breath sounds, no wheezing and no rhonchi, no crackles Abdomen Normal Bowel Sounds, Soft Neurological Normal Speech, Normal Tone Extremities 2+ pitting edema on bilaterall lower extremities Vascular Pulses Symmetrical Current Medications: Current Medications Sig/Serafin Start time Last Medication Dose Route Stop Time Status Admin Diltiazem HCl 125 MG Q12H 07/18 1115 AC 07/18 Sodium Chloride 100 ML IV 2254 Diltiazem HCl 125 MG Q8H 07/17 0615 DC 07/18 Sodium Chloride 100 ML IV 0930 Furosemide 60 MG 7:30 AM, & 4:30 PM 07/18 1630 DC IV Furosemide 60 MG 7:30 AM, & 4:30 PM 07/18 0915 AC 07/18 IV 1633 Furosemide 40 MG 7:30 AM, & 4:30 PM 07/18 0730 DC IV Losartan Potassium 25 MG DAILY 07/17 1000 AC 07/18 PO 0930 Metoprolol Tartrate 50 MG BID 07/17 1033 AC 07/18 PO 2131 Rivaroxaban 20 MG 1700 07/17 1700 AC 07/18 PO 1638 Senna/Docusate Sodium 1 TAB DAILY 07/18 1333 AC 07/18 PO 1454 Trimethobenzamide HCl 200 MG Q6P PRN 07/18 1115 AC IM Last 24 Hrs of Lab/Josep Results Last 24 Hrs of Labs/Mics: Laboratory Tests 07/19/16 0625: Sodium Pending, Potassium Pending, Chloride Pending, Carbon Dioxide Pending, Anion Gap Pending, BUN Pending, Creatinine Pending, BUN/Creatinine Ratio Pending , Magnesium Pending, CBC w Diff Pending, WBC Pending, RBC Pending, Hgb Pending, Hct Pending, MCV Pending, MCH Pending, RDW Pending, Plt Count Pending, MPV Pending, PUBS MCHC Pending 07/18/16 1350: Urine Color PINK H, Urine Clarity HAZY H, Urine pH 6.0, Ur Specific [place] 1.015, Urine Protein 30 H, Urine Ketones NEG, Urine Nitrite NEG, Urine Bilirubin NEG, Urine Urobilinogen 0.2, Ur Leukocyte Esterase SMALL H, Ur Microscopic SEDIMENT EXAMINED, Urine RBC >75 H, Urine WBC 5-10 H, Urine Bacteria FEW H, Urine Hemoglobin LARGE H, Urine Glucose NEG Assessment/Plan Assessment: Patient is a 71 year old male with PMH of atrial fibrillation on Xarelto, chronic diastolic , HTN, HLD, DM type 2 (not compliant with medication), morbid obesity, bladder stone, questionable gout, who came to the ED with progressive SOB on ambulation and at rest, LE edema, orthopnea, with acute worsening of symptoms since 4 days ago and dizziness of one day. # Acute CHF exacerbation Patient had bilateral fluid overload with pleural effusions, proBNP elevated at 688, bilateral pedal edema noted with paroxysmal nocturnal dyspnea present on history, most consistent with CHF exacerbation. * IV Lasix 60mg BID as per cardio rec * Follow repeat echo - grossly normal * Cont to apprecaite cardio recs # Atrial fibrillation with RVR EKG on admission consistent with atrial fibrillation with a rate of 150, QTc 500. Patient takes cardizem 120 mg daily and metoprolol 100 mg daily at home. HR is coming down slowly on cardizem drip 10cc/hr. * Discontinue cardizem drip * Start home dose of cardizem 120mg PO daily, may increase if HR stays above 100 * Cont metoprolol 50mg PO BID * Cont home med Xarelto * Appreciate cardio recs # Elevated D-Dimer In the setting of elevated D-dimer at 339 and respiratory distress, PE was considered a possibility but it is unlikely as Doppler venous is negative and patient is clinically improving on Lasix. * Consider CTA if patient clinically deteriorates # Leukocytosis Most likely reactive in the absence of fever or URI symptoms. Reported some chills a few days ago when he slept with windows open at home but currently denies it. * Continue to monitor vital signs * Monitor off abx * Repeat CBC, trend WBC * Blood culture, sputum culture, strep. pneumonia and legionella antigens - NGTD * TRC neb tx and oxygen support as needed # Hematuria - improving off wilks Patient having hematuria since this morning. Most likely due to wilks cath. * Remove wilks cath * Cont strict I/Os * Check UA # DM2 Reportedly not complaints with home med Metformin (stopped due to side effects) * Novolog SSI with accuchecks * Diabeitic diet # HTN * Continue losartan at home dose * Metoprolol and Lasix as above # Morbid obesity, HLD Patient reports he gained a lot of weight since he quit smoking 15 years ago. 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 Reports he has gout but does not recall if this was diagnosed by a doctor; also he has not taken any medication for a possible gout. * Follow Uric acid - sligtly elevated at 9.5 * Monitor for gout flares - Diabetic diet - Mild pain pathway - DVTppx with Xarelto - Full code Problem List: 1. Shortness of breath 2. Hypertension 3. Atrial fibrillation with rapid ventricular response 4. CHF (congestive heart failure) 5. Morbid obesity Pain Ratin Pain Location: 0 Pain Goal: Remain pain free Pain Plan: Mild pathway Tomorrow's Labs & Rationales: GALDINO URBINAP
[2016-07-19 08:42] LABS: ABSOLUTE BASOPHIL COUNT 0.1 /CUMM (0.0-0.2); ABSOLUTE EOSINOPHIL COUNT 0.3 /CUMM (0.0-0.7); ABSOLUTE GRANULOCYTE CT 10.5 /CUMM (1.4-6.5); ABSOLUTE LYMPH COUNT 2.5 /CUMM (1.2-3.4); ABSOLUTE MONOCYTE COUNT 1.2 /CUMM (0.10-0.60); BASOPHIL % 0.4 % (0.0-2.0); GRANULOCYTE % 72.2 % (42.2-75.2); HEMATOCRIT 44.3 % (42-52); MEAN CORPUSCULAR HGB 25.9 PG (27.0-31.0); MEAN CORPUSCULAR HGB CONC 32.7 G/DL (33.0-37.0); MEAN CORPUSCULAR VOLUME 79.1 FL (80.0-94.0); MEAN PLATELET VOLUME 6.9 FL (7.4-10.4); PLATELET COUNT 470 /CUMM (130-400); RBC DISTRIBUTION WIDTH 18.1 % (11.5-14.5); WHITE BLOOD CELL COUNT 14.6 /CUMM (4.8-10.8)
--- NOTE | 2016-07-19 09:17 | PN- Student ---
Subjective Subjective: I examined Mr. Conley this morning while he was sitting comfortably in his chair. He reported that he had coke colored urine last night and had his wilks removed. He also complains of some dizziness and right great toe pain on movement that he feels may be his gout returning. He states that his breathing has improved and he denies any chest pain, palpitations, abdominal pain, headache, back pain, or extremity pain. Objective Objective: Vital Signs Date Time Temp Pulse Resp B/P B/P Pulse O2 O2 Flow FiO2 Mean Ox Delivery Rate 07/19 0801 97.8 96 20 104/60 97 Nasal 4.0L Cannula 07/19 0000 95 Nasal 4.0L Cannula 07/18 2131 89 116/60 07/18 1635 98.0 65 20 134/68 96 Nasal Cannula 07/18 1600 95 Nasal 4.0L Cannula 07/18 0930 77 142/72 07/18 0930 77 142/72 Intake & Output 07/19 1600 07/19 0800 07/19 0000 Intake Total 480 Output Total 400 1650 Balance -400 -1170 Intake, IV 80 Intake, Oral 400 Output, Urine 400 1650 Patient 363 lb Weight Weight Bed scale Measurement Method Telemetry: atrial fibrillation 93-113 multiple 3 beats at 0000 w/PVCs Notes: given trimethobenzamine 200mg Q6P IM for N/V, cardizem drip decreased to 10ml/hr Q12 IV. PE: general- alert and oriented x 3, good mental state. No acute distress. HEENT- PEERLA, atraumatic, membranes moist and pink. Neck- obese, no lymphadenopathy, no thyromegaly, midline trachea CV- S1 and S2 heard, irregular rhythm, no murmurs or rubs Chest- decreased breathsounds with no crackles heard Abd- bowel sounds heard, soft and non-tender to palpation, percussion normal Back- no CVA tenderness or spinal tenderness to palpation Skin- warm and well perfused, no lesions noted Ext- Edema greatly improved. No pitting noted around shins with only slight dimpling noted on ankles and feet. Right toe pain on movement of 1/10 with no erythema or swelling noted. Neuro- 5/5 strength of UE bilaterally, sensation intact in all 4 extremities Results Results: Laboratory Tests 07/19/16 0625: Anion Gap 11, Estimated GFR > 60, BUN/Creatinine Ratio 19.1, Magnesium 2.0, CBC w Diff NO MAN DIFF REQ, RBC 5.60, MCV 79.1 L, MCH 25.9 L, RDW 18.1 H, MPV 6.9 L, Gran % 72.2, Lymphocytes % 16.8 L, Monocytes % 8.6, Eosinophils % 2.0, Basophils % 0.4, Absolute Granulocytes 10.5 H, Absolute Lymphocytes 2.5, Absolute Monocytes 1.2 H, Absolute Eosinophils 0.3, Absolute Basophils 0.1, PUBS MCHC 32.7 L 07/18/16 1350: Urine Color PINK H, Urine Clarity HAZY H, Urine pH 6.0, Ur Specific [place] 1.015, Urine Protein 30 H, Urine Ketones NEG, Urine Nitrite NEG, Urine Bilirubin NEG, Urine Urobilinogen 0.2, Ur Leukocyte Esterase SMALL H, Ur Microscopic SEDIMENT EXAMINED, Urine RBC >75 H, Urine WBC 5-10 H, Urine Bacteria FEW H, Urine Hemoglobin LARGE H, Urine Glucose NEG 07/18/16 0610: Anion Gap 11, Estimated GFR > 60, BUN/Creatinine Ratio 17.0, Magnesium 2.0, CBC w Diff NO MAN DIFF REQ, RBC 5.43, MCV 79.6 L, MCH 25.6 L, RDW 18.3 H, MPV 6.9 L, Gran % 75.1, Lymphocytes % 13.6 L, Monocytes % 9.3, Eosinophils % 1.6, Basophils % 0.4, Absolute Granulocytes 10.5 H, Absolute Lymphocytes 1.9, Absolute Monocytes 1.3 H, Absolute Eosinophils 0.2, Absolute Basophils 0.1, PUBS MCHC 32.1 L 07/17/16 1640: Troponin I 0.01 07/17/16 1200: Troponin I < 0.01 07/17/16 0609: D-Dimer Cancelled 07/17/16 0428: Urinalysis LIGHT H, Urine Color YEL, Urine Clarity CLEAR, Urine pH 6.0, Ur Specific [place] 1.015, Urine Protein 100 H, Urine Ketones NEG, Urine Nitrite NEG, Urine Bilirubin NEG, Urine Urobilinogen 0.2, Ur Leukocyte Esterase NEG, Ur Microscopic SEDIMENT EXAMINED, Urine RBC 5-10 H, Urine WBC 1-3 H, Urine Bacteria FEW H, Urine Hemoglobin MOD H, Urine Glucose NEG 07/17/16 0345: pH 7.42, pCO2 31 L, pO2 134 H, HCO3 19 L, ABG O2 Sat (Measured) 97.0, P-50 ( Temp Corrected) Y, Carboxyhemoglobin 1.1 L, O2 Concentration % 60%, Temperature 97.5, O2 Delivery Method PRB, Phlebotomy Draw Site RIGHT RADIAL 07/17/16 0340: Anion Gap 16, Estimated GFR > 60, BUN/Creatinine Ratio 14.5, Glucose 153 H, Uric Acid 9.5 H, Calcium 9.2, Total Bilirubin 0.9, AST 40, ALT 45, Alkaline Phosphatase 147 H, Troponin I < 0.01, Hgk-D-Aekovohdmzk Pept 688 H, Total Protein 8.3 H, Albumin 4.3, Globulin 4.0, Albumin/Globulin Ratio 1.1, PT 17.5 H, INR 1.68 H, APTT 41 H, D-Dimer 339 H, CBC w Diff MAN DIFF ORDERED, RBC 6.01, MCV 79.3 L, MCH 25.6 L, RDW 18.3 H, MPV 6.6 L, Gran % 84.9 H, Lymphocytes % 8.4 L, Monocytes % 5.9, Eosinophils % 0.5, Basophils % 0.3, Absolute Granulocytes 14.6 H, Absolute Lymphocytes 1.4, Absolute Monocytes 1.0 H, Absolute Eosinophils 0.1, Absolute Basophils 0, Platelet Estimate INCREASED, Normocytic RBCs VERIFIED, Normochromic RBCs VERIFIED, PUBS MCHC 32.3 L Microbiology 07/17 0640 BLOOD: Blood Culture - RES 07/17 634 BLOOD: Blood Culture - RES 07/18 511 LOWER RESP: Respiratory Culture - CAN Cancelled: SPECIMEN NOT RECEIVED IN LABORATORY 07/18 511 LOWER RESP: Gram Stain - CAN Cancelled: SPECIMEN NOT RECEIVED IN LABORATORY 07/18 427 URINE ROUT: Legionella Antigen - COMP 07/18 427 URINE ROUT: Streptococcus pneumoniae Antigen (M - COMP 07/18 427 URINE ROUT: Urine Culture - COMP Assessment/Plan Assessment: Mr. Conley is a morbidly obese 71 yo white male with a PMHx of a-fib (for which he takes xarelto), chronic diastolic HF (for which he sees Dr. Reynolds), HTN, HLD, type 2 DM (noncompliant w/metformin due to diarrhea), and gout ( patient reported). He also reports a bladder stone that does not cause him any symptoms. He was admitted to cardiac telemetry floor for a 4 day progressively worsening dyspnea at rest and exertion. Patient is concerned about his hematuria. His WBC has increased although he does not complain of any CVA or suprapubic tenderness or pain so hematuria is most likely catheter related. He does have some dizziness today which may be due to cardizem which was decreased in dose frequency. Edema is nearly resolved and lung sounds are clear. HR is still slightly elevated but BP has been pretty well controlled. Current Medications Sig/Serafin Start time Last Medication Dose Route Stop Time Status Admin Diltiazem HCl 125 MG Q12H 07/18 1115 AC 07/18 Sodium Chloride 100 ML IV 2254 Diltiazem HCl 125 MG Q8H 07/17 0615 DC 07/18 Sodium Chloride 100 ML IV 0930 Furosemide 60 MG 7:30 AM, & 4:30 PM 07/18 0915 AC 07/18 IV 1633 Losartan Potassium 25 MG DAILY 07/17 1000 AC 07/18 PO 0930 Metoprolol Tartrate 50 MG BID 07/17 1033 AC 07/18 PO 2131 Rivaroxaban 20 MG 1700 07/17 1700 AC 07/18 PO 1638 Senna/Docusate Sodium 1 TAB DAILY 07/18 1333 AC 07/18 PO 1454 Trimethobenzamide HCl 200 MG Q6P PRN 07/18 1115 AC IM Plan: Due to hematuria we will do a UA to assess for UTI. Will also monitor him for any fever or signs of infection. Could decrease/stop xarelto if hematuria persists. Contine lasix therapy and monitor renal function. Monitor for any signs of gout. Problem List: 1. Progressive Dyspnea secondary to diastolic HF- continue lasix therapy 60 mg IV BID (BUN-21, Brush Cleaner-1.1) 2. chronic diastolic HF- continue to diurese 3. Atrial fibrillation w/RVR- continue metoprolol and cardizem as above, continue anticoagulation and monitor INR. 4. Hematuria- UA to assess for UTI. Continue to monitor, consider holding anticoagulation if it persists. 5. Leukocytosis- most likely reactive. value has increased to 14.6. UA to rule out UTI. Monitor for signs of infection. 6. Elevated D-Dimer- PE unlikely since venous dopler was negative. Respiratory status improving on lasix. 7. HTN- continue Losartan 25mg daily PO 8. Hyperlipidemia- may refer to home dose of statin therapy if initiated 9. Type 2 DM- monitor blood glucose, insulin therapy as needed 10. Morbid Obesity- discuss healthy eating habits and possible diet and exercise options 11. Gout- minor symptoms, continue to monitor. latest uric acid level was 9.5. Diet: Heart healthy DVT prophylaxis: patient on xarelto Code status: full code
--- NOTE | 2016-07-19 11:48 | PN- Cardiology ---
Subjective Subjective: The patient is sitting in a chair eating lunch. He is comfortable. He has no complaints. He is in atrial fibrillation with heart rate in the 90s to low 100s. He is still on Cardizem drip. Objective Vital Signs and I&Os Vital Signs Date Time Temp Pulse Resp B/P B/P Pulse O2 O2 Flow FiO2 Mean Ox Delivery Rate 07/19 1024 96 122/78 07/19 1024 96 122/78 07/19 0801 97.8 96 20 104/60 97 Nasal 4.0L Cannula 07/19 0000 95 Nasal 4.0L Cannula 07/18 2131 89 116/60 07/18 1635 98.0 65 20 134/68 96 Nasal Cannula 07/18 1600 95 Nasal 4.0L Cannula Intake & Output 07/19 1600 07/19 0800 07/19 0000 07/18 1600 07/18 0800 07/18 0000 Intake Total 480 830 105 700 Output Total 400 1650 1000 550 750 Balance -400 -1170 -170 -445 -50 Intake, IV 80 80 105 250 Intake, Oral 400 750 450 Number 0 0 Bowel Movements Output, Urine 400 1650 1000 550 750 Patient 363 lb 357 lb 366 lb 363 lb Weight Weight Bed scale Bed scale Bed scale Bed scale Measurement Method Physical Exam: Is a very large man sitting in a chair without any complaints HEENT exam is normal Chest is clear Heart reveals irregular rhythm, soft heart sounds, no murmurs Extremities no edema Current Medications: Current Medications Sig/Serafin Start time Last Medication Dose Route Stop Time Status Admin Diltiazem HCl 125 MG Q12H 07/18 1115 AC 07/18 Sodium Chloride 100 ML IV 2254 Furosemide 60 MG 7:30 AM, & 4:30 PM 07/18 0915 AC 07/19 IV 1020 Losartan Potassium 25 MG DAILY 07/17 1000 AC 07/19 PO 1024 Metoprolol Tartrate 50 MG BID 07/17 1033 AC 07/19 PO 1024 Rivaroxaban 20 MG 1700 07/17 1700 AC 07/18 PO 1638 Senna/Docusate Sodium 1 TAB DAILY 07/18 1333 AC 07/19 PO 1025 Trimethobenzamide HCl 200 MG Q6P PRN 07/18 1115 AC IM Results Last 48 Hrs of Labs/Mics: Laboratory Tests 07/19/16 0625: Anion Gap 11, Estimated GFR > 60, BUN/Creatinine Ratio 19.1, Magnesium 2.0, CBC w Diff NO MAN DIFF REQ, RBC 5.60, MCV 79.1 L, MCH 25.9 L, RDW 18.1 H, MPV 6.9 L, Gran % 72.2, Lymphocytes % 16.8 L, Monocytes % 8.6, Eosinophils % 2.0, Basophils % 0.4, Absolute Granulocytes 10.5 H, Absolute Lymphocytes 2.5, Absolute Monocytes 1.2 H, Absolute Eosinophils 0.3, Absolute Basophils 0.1, PUBS MCHC 32.7 L 07/18/16 1350: Urine Color PINK H, Urine Clarity HAZY H, Urine pH 6.0, Ur Specific [place] 1.015, Urine Protein 30 H, Urine Ketones NEG, Urine Nitrite NEG, Urine Bilirubin NEG, Urine Urobilinogen 0.2, Ur Leukocyte Esterase SMALL H, Ur Microscopic SEDIMENT EXAMINED, Urine RBC >75 H, Urine WBC 5-10 H, Urine Bacteria FEW H, Urine Hemoglobin LARGE H, Urine Glucose NEG 07/18/16 0610: Anion Gap 11, Estimated GFR > 60, BUN/Creatinine Ratio 17.0, Magnesium 2.0, CBC w Diff NO MAN DIFF REQ, RBC 5.43, MCV 79.6 L, MCH 25.6 L, RDW 18.3 H, MPV 6.9 L, Gran % 75.1, Lymphocytes % 13.6 L, Monocytes % 9.3, Eosinophils % 1.6, Basophils % 0.4, Absolute Granulocytes 10.5 H, Absolute Lymphocytes 1.9, Absolute Monocytes 1.3 H, Absolute Eosinophils 0.2, Absolute Basophils 0.1, PUBS MCHC 32.1 L 07/17/16 1640: Troponin I 0.01 07/17/16 1200: Troponin I < 0.01 Assessment/Plan Assessment/Plan The patient is stable. His heart rate is fairly well controlled. He is on Metoprolol 50 mg BID and remains on IV Lasix and oral Xarelto and losartan. He has diuresed a considerable amount. He does not appear to be clinically in congestive heart failure. I recommend changing his IV Cardizem to oral Cardizem 120 mg which is his home dose. If his rate is not controlled on that we can increase it to 240 mg. I would discontinue IV Lasix and put him on oral Lasix. If he is stable on his oral medications he can probably be discharged tomorrow. Continue telemetry? Yes
[2016-07-19 15:46] VITALS: BP 120/62
--- NOTE | 2016-07-19 19:24 | Patient Discharge Instructions ---
Discharge Instructions General Discharge Information You were seen/treated for: Acute heart failure exacerbation Atrial fibrillation with rapid ventricular rate Special Instructions: Please follow up with your primary care physician and hydroponics worker Dr. Reynolds within 1 week of discharge. Diet Continue normal diet: Yes Activity Full Activity/No Limits: Yes (as tolerated) Acute Coronary Syndrome Inclusion Criteria At DC or during hospital stay patient has or had the following: ACS DIAGNOSIS No Discharge Core Measures Meds if any: Prescribed or Continued at Discharge Meds if any: NOT Prescribed or Continued at Discharge Congestive Heart Failure Inclusion Criteria At DC or during hospital stay patient has or had the following: CHF DIAGNOSIS No Discharge Core Measures Meds if any: Prescribed or Continued at Discharge Meds if any: NOT Prescribed or Continued at Discharge Cerebrovascular accident Inclusion Criteria At DC or during hospital stay patient has or had the following: CVA/TIA Diagnosis No Discharge Core Measures Meds if any: Prescribed or Continued at Discharge Meds if any: NOT Prescribed or Continued at Discharge Venous thromboembolism Inclusion Criteria VTE Diagnosis No VTE Type NONE VTE Confirmed by (Test) NONE Discharge Core Measures - Per Current guidelines, there needs to be overlap - treatment for the first 5 days of Warfarin therapy. - If discharged on Warfarin prior to 5 days of - overlap therapy, the patient will need to be - assessed for post discharge needs including - *Post discharge parental anticoagulation - *Warfarin and/or parental anticoagulation education - *Follow up date to check INR post discharge At least 5 days overlap therapy as Inpatient No Meds if any: Prescribed or Continued at Discharge Note: Overlap Therapy is Warfarin and Anticoagulant Meds if any: NOT Prescribed or Continued at Discharge
[2016-07-20 00:05] VITALS: BP 105/63
[2016-07-20 08:04] VITALS: BP 108/70
--- NOTE | 2016-07-20 09:10 | PN- Housestaff ---
See Addendum Subjective Follow-up For: AFIB WITH RVR Subjective: Patient seen and examined at bedside. He reports feeling much better overall with an improvement in dyspnea. Denies chest pain, palpitations, lightheadedness , dizziness, abdominal pain, n/v/c/d. No acute events reported overnight. Pt is eager for discharge. Review of Systems Constitutional: Reports: no symptoms. Objective Last 24 Hrs of Vital Signs/I&O Vital Signs Date Time Temp Pulse Resp B/P B/P Pulse O2 O2 Flow FiO2 Mean Ox Delivery Rate 07/20 1038 94 142/70 07/20 0804 97.8 102 18 108/70 98 Nasal 4.0L Cannula 07/20 0005 97.9 72 18 105/63 98 Nasal Cannula 07/20 0000 95 Nasal 4.0L Cannula 07/194 116 116/72 07/19 211 126 116/72 07/19 1546 98.2 64 18 120/62 95 Intake & Output 07/20 1600 07/20 0800 07/20 0000 Intake Total 400 800 Output Total Balance 400 800 Intake, Oral 400 800 Patient 162.386 kg Weight Weight Bed scale Measurement Method Physical Exam General Appearance: Alert, Oriented X3, Cooperative Other Physical Findings: Other Physical Findings: Skin No Significant Lesion Skin Temp/Moisture Exam: Warm/Dry Sepsis Skin Exam (color): Normal for Ethnicity HEENT Atraumatic, EOMI, Mucous Membr. moist/pink, pupild equal and reactive to light Neck Supple, JVD elevated at the level of the jaw Cardiovascular Normal S1, Normal S2, distant heart sounds, irregular, no murmur Lungs decreased air movement and decreased breath sounds, no wheezing and no rhonchi, no crackles Abdomen Normal Bowel Sounds, Soft Neurological Normal Speech, Normal Tone Extremities 2+ pitting edema on bilaterall lower extremities Vascular Pulses Symmetrical Current Medications: Current Medications Sig/Serafin Start time Last Medication Dose Route Stop Time Status Admin Diltiazem HCl 60 MG ONCE ONE 07/19 1844 DC 07/19 PO 07/19 Diltiazem HCl 120 MG DAILY 07/19 1153 AC 07/20 PO 1038 Diltiazem HCl 125 MG Q12H 07/18 1115 DC 07/18 Sodium Chloride 100 ML IV 2254 Furosemide 60 MG 7:30 AM, & 4:30 PM 07/19 1844 AC 07/20 PO 0811 Furosemide 60 MG 7:30 AM, & 4:30 PM 07/18 0915 DC 07/19 IV 1020 Losartan Potassium 25 MG DAILY 07/17 1000 AC 07/20 PO 1038 Metoprolol Tartrate 50 MG BID 07/17 1033 AC 07/20 PO 1038 Patient Medication 1 UNIT ONE NR 07/19 1945 AL Teaching ED 07/19 2000 Patient Medication 1 UNIT ONE NR 07/19 1200 AL Teaching ED 07/19 1230 Potassium Chloride 40 MEQ ONCE ONE 07/19 1300 DC 07/19 PO 07/19 1301 1302 Rivaroxaban 20 MG 1700 07/17 1700 AC 07/19 PO 1850 Senna/Docusate Sodium 1 TAB DAILY 07/18 1333 AC 07/20 PO 1038 Trimethobenzamide HCl 200 MG Q6P PRN 07/18 1115 AC IM Last 24 Hrs of Lab/Josep Results Last 24 Hrs of Labs/Mics: Laboratory Tests 07/20/16 0815: Anion Gap 12, Estimated GFR > 60, BUN/Creatinine Ratio 23.0, Magnesium 2.0, CBC w Diff NO MAN DIFF REQ, RBC 5.83, MCV 80.0, MCH 25.7 L, RDW 18.5 H, MPV 6.9 L , Gran % 77.9 H, Lymphocytes % 13.0 L, Monocytes % 6.8, Eosinophils % 2.0, Basophils % 0.3, Absolute Granulocytes 11.2 H, Absolute Lymphocytes 1.9, Absolute Monocytes 1.0 H, Absolute Eosinophils 0.3, Absolute Basophils 0, PUBS MCHC 32.1 L Assessment/Plan Assessment: Patient is a 71 year old male with PMH of atrial fibrillation on Xarelto, chronic diastolic , HTN, HLD, DM type 2 (not compliant with medication), morbid obesity, bladder stone, questionable gout, who came to the ED with progressive SOB on ambulation and at rest, LE edema, orthopnea, with acute worsening of symptoms since 4 days ago and dizziness of one day. # Acute CHF exacerbation Patient had bilateral fluid overload with pleural effusions, proBNP elevated at 688, bilateral pedal edema noted with paroxysmal nocturnal dyspnea present on history, most consistent with CHF exacerbation. * IV Lasix 60mg BID as per cardio rec * Follow repeat echo - grossly normal * Cont to apprecaite cardio recs # Atrial fibrillation with RVR EKG on admission consistent with atrial fibrillation with a rate of 150, QTc 500. Patient takes cardizem 120 mg daily and metoprolol 100 mg daily at home. HR is coming down slowly on cardizem drip 10cc/hr. * Discontinue cardizem drip * Start home dose of cardizem 120mg PO daily, may increase if HR stays above 100 * Cont metoprolol 50mg PO BID * Cont home med Xarelto * Appreciate cardio recs # Elevated D-Dimer In the setting of elevated D-dimer at 339 and respiratory distress, PE was considered a possibility but it is unlikely as Doppler venous is negative and patient is clinically improving on Lasix. * Consider CTA if patient clinically deteriorates # Leukocytosis Most likely reactive in the absence of fever or URI symptoms. Reported some chills a few days ago when he slept with windows open at home but currently denies it. * Continue to monitor vital signs * Monitor off abx * Repeat CBC, trend WBC * Blood culture, sputum culture, strep. pneumonia and legionella antigens - NGTD * TRC neb tx and oxygen support as needed # Hematuria - improving off wilks Patient having hematuria since this morning. Most likely due to wilks cath. * Remove wilks cath * Cont strict I/Os * Check UA # DM2 Reportedly not complaints with home med Metformin (stopped due to side effects) * Novolog SSI with accuchecks * Diabeitic diet # HTN * Continue losartan at home dose * Metoprolol and Lasix as above # Morbid obesity, HLD Patient reports he gained a lot of weight since he quit smoking 15 years ago. 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 Reports he has gout but does not recall if this was diagnosed by a doctor; also he has not taken any medication for a possible gout. * Follow Uric acid - sligtly elevated at 9.5 * Monitor for gout flares - Diabetic diet - Mild pain pathway - DVTppx with Xarelto - Full code Problem List: 1. Atrial fibrillation with rapid ventricular response 2. CHF (congestive heart failure) Pain Ratin Pain Location: NONE Pain Goal: Remain pain free Pain Plan: per pain pathway Tomorrow's Labs & Rationales: none-possible discharge
[2016-07-20 09:43] LABS: ABSOLUTE BASOPHIL COUNT 0 /CUMM (0.0-0.2); ABSOLUTE EOSINOPHIL COUNT 0.3 /CUMM (0.0-0.7); ABSOLUTE GRANULOCYTE CT 11.2 /CUMM (1.4-6.5); ABSOLUTE LYMPH COUNT 1.9 /CUMM (1.2-3.4); BASOPHIL % 0.3 % (0.0-2.0); GRANULOCYTE % 77.9 % (42.2-75.2); HEMATOCRIT 46.7 % (42-52); MEAN CORPUSCULAR HGB 25.7 PG (27.0-31.0); MEAN CORPUSCULAR HGB CONC 32.1 G/DL (33.0-37.0); MEAN PLATELET VOLUME 6.9 FL (7.4-10.4); PLATELET COUNT 492 /CUMM (130-400); RBC DISTRIBUTION WIDTH 18.5 % (11.5-14.5); RED BLOOD CELL CT 5.83 /CUMM (4.70-6.10); WHITE BLOOD CELL COUNT 14.4 /CUMM (4.8-10.8)
--- NOTE | 2016-07-20 11:05 | PN- Cardiology ---
Subjective Subjective: The patient has no complaints today. He remains in atrial fibrillation. His rate is in the low 100s. He is on metoprolol and Cardizem by mouth and Eliquis for anticoagulation. Objective Vital Signs and I&Os Vital Signs Date Time Temp Pulse Resp B/P B/P Pulse O2 O2 Flow FiO2 Mean Ox Delivery Rate 07/20 1038 94 142/70 07/20 0804 97.8 102 18 108/70 98 Nasal 4.0L Cannula 07/20 0005 97.9 72 18 105/63 98 Nasal Cannula 07/20 0000 95 Nasal 4.0L Cannula 07/194 116 116/72 07/19 211 126 116/72 07/19 1546 98.2 64 18 120/62 95 Intake & Output 07/20 1600 07/20 0800 07/20 0000 07/19 1600 07/19 0800 07/19 0000 Intake Total 925 722 5591 480 Output Total 2000 400 1650 Balance 400 800 -730 -400 -1170 Intake, IV 70 80 Intake, Oral 414 013 8362 400 Number 1 Bowel Movements Output, Urine 2000 400 1650 Patient 358 lb 363 lb Weight Weight Bed scale Bed scale Measurement Method Physical Exam: Very obese man in no acute distress Chest is clear Heart reveals soft heart sounds, irregular rhythm with moderate rate Current Medications: Current Medications Sig/Serafin Start time Last Medication Dose Route Stop Time Status Admin Diltiazem HCl 60 MG ONCE ONE 07/19 1844 DC 07/19 PO 07/19 184 2114 Diltiazem HCl 120 MG DAILY 07/19 1153 AC 07/20 PO 1038 Diltiazem HCl 125 MG Q12H 07/18 1115 DC 07/18 Sodium Chloride 100 ML IV 2254 Furosemide 60 MG 7:30 AM, & 4:30 PM 07/19 1845 AC 07/20 PO 0811 Furosemide 60 MG 7:30 AM, & 4:30 PM 07/18 0915 DC 07/19 IV 1020 Losartan Potassium 25 MG DAILY 07/17 1000 AC 07/20 PO 1038 Metoprolol Tartrate 50 MG BID 07/17 1033 AC 07/20 PO 1038 Patient Medication 1 UNIT ONE NR 07/19 1945 TX Teaching ED 07/19 2000 Patient Medication 1 UNIT ONE NR 07/19 1200 TX Teaching ED 07/19 1230 Potassium Chloride 40 MEQ ONCE ONE 07/19 1300 DC 07/19 PO 07/19 1301 1302 Rivaroxaban 20 MG 1700 07/17 1700 AC 07/19 PO 1850 Senna/Docusate Sodium 1 TAB DAILY 07/18 1333 AC 07/20 PO 1038 Trimethobenzamide HCl 200 MG Q6P PRN 07/18 1115 AC IM Results Last 48 Hrs of Labs/Mics: Laboratory Tests 07/20/16 0815: Anion Gap 12, Estimated GFR > 60, BUN/Creatinine Ratio 23.0, Magnesium 2.0, CBC w Diff NO MAN DIFF REQ, RBC 5.83, MCV 80.0, MCH 25.7 L, RDW 18.5 H, MPV 6.9 L , Gran % 77.9 H, Lymphocytes % 13.0 L, Monocytes % 6.8, Eosinophils % 2.0, Basophils % 0.3, Absolute Granulocytes 11.2 H, Absolute Lymphocytes 1.9, Absolute Monocytes 1.0 H, Absolute Eosinophils 0.3, Absolute Basophils 0, PUBS MCHC 32.1 L 07/19/16 0625: Anion Gap 11, Estimated GFR > 60, BUN/Creatinine Ratio 19.1, Magnesium 2.0, CBC w Diff NO MAN DIFF REQ, RBC 5.60, MCV 79.1 L, MCH 25.9 L, RDW 18.1 H, MPV 6.9 L, Gran % 72.2, Lymphocytes % 16.8 L, Monocytes % 8.6, Eosinophils % 2.0, Basophils % 0.4, Absolute Granulocytes 10.5 H, Absolute Lymphocytes 2.5, Absolute Monocytes 1.2 H, Absolute Eosinophils 0.3, Absolute Basophils 0.1, PUBS MCHC 32.7 L 07/18/16 1350: Urine Color PINK H, Urine Clarity HAZY H, Urine pH 6.0, Ur Specific [place] 1.015, Urine Protein 30 H, Urine Ketones NEG, Urine Nitrite NEG, Urine Bilirubin NEG, Urine Urobilinogen 0.2, Ur Leukocyte Esterase SMALL H, Ur Microscopic SEDIMENT EXAMINED, Urine RBC >75 H, Urine WBC 5-10 H, Urine Bacteria FEW H, Urine Hemoglobin LARGE H, Urine Glucose NEG Assessment/Plan Assessment/Plan The patient's heart rate is not ideally controlled. I recommend increasing Cardizem to 240 mg daily. He probably only needs Lasix once daily on discharge. He can be discharged when his heart rate is better controlled. Continue telemetry? Yes
[2016-07-20 17:54] VITALS: BP 146/80
[2016-07-20 23:54] VITALS: BP 106/60
--- NOTE | 2016-07-21 06:31 | PN- Housestaff ---
See Addendum Subjective Follow-up For: Afib with RVR CHF exacerbation Tele-Events Since Last Visit: Afib 80-118 Subjective: Patient seen and examined at bedside. He is very frustrated about the food and states that he is going home today no matter what. Medically patient is improving and stable although HR is staying a bit high which is probably 2/2 his frustration. He reports feeling much better overall with an improvement in dyspnea. Denies chest pain, palpitations, lightheadedness, dizziness, abdominal pain, n/v/c/d. No acute events reported overnight. Review of Systems Constitutional: Reports: see HPI. Objective Last 24 Hrs of Vital Signs/I&O Vital Signs Date Time Temp Pulse Resp B/P B/P Pulse O2 O2 Flow FiO2 Mean Ox Delivery Rate 07/21 0747 97.7 65 22 124/72 95 Room Air 07/21 0000 Nasal 2.0L Cannula 07/20 2354 99.2 79 22 106/60 95 Room Air 07/20 2113 102 148/84 07/20 1800 118 146/80 07/20 1754 97.6 95 22 146/80 93 Room Air 07/20 1600 Nasal 2.0L Cannula 07/20 1130 95 Room Air 07/20 1038 94 142/70 07/20 0930 96 Nasal 3.0L Cannula Intake & Output 07/21 1600 07/21 0800 07/21 0000 Intake Total 720 Output Total Balance 720 Intake, Oral 720 Patient 150.593 kg Weight Weight Bed scale Measurement Method Physical Exam General Appearance: Alert, Oriented X3, Cooperative, No Acute Distress Other Physical Findings: Skin No Significant Lesion Skin Temp/Moisture Exam: Warm/Dry Sepsis Skin Exam (color): Normal for Ethnicity HEENT Atraumatic, EOMI, Mucous Membr. moist/pink, pupild equal and reactive to light Neck Supple, JVD elevated at the level of the jaw Cardiovascular Normal S1, Normal S2, distant heart sounds, irregular, no murmur Lungs decreased air movement and decreased breath sounds, no wheezing and no rhonchi, no crackles Abdomen Normal Bowel Sounds, Soft Neurological Normal Speech, Normal Tone Extremities Trace edema on bilaterall lower extremities Vascular Pulses Symmetrical Current Medications: Current Medications Sig/Serafin Start time Last Medication Dose Route Stop Time Status Admin Diltiazem HCl 240 MG DAILY 07/21 1000 AC PO Diltiazem HCl 120 MG ONCE ONE 07/20 1730 DC 07/20 PO 07/20 1731 1800 Diltiazem HCl 120 MG DAILY 07/19 1153 DC 07/20 PO 1038 Furosemide 60 MG 7:30 AM, & 4:30 PM 07/19 1845 AC 07/21 PO 0822 Losartan Potassium 25 MG DAILY 07/17 1000 AC 07/20 PO 1038 Metoprolol Tartrate 50 MG BID 07/17 1033 AC 07/20 PO 2113 Rivaroxaban 20 MG 1700 07/17 1700 AC 07/20 PO 1710 Senna/Docusate Sodium 1 TAB DAILY 07/18 1333 AC 07/20 PO 1038 Trimethobenzamide HCl 200 MG Q6P PRN 07/18 1115 AC IM Last 24 Hrs of Lab/Josep Results Last 24 Hrs of Labs/Mics: Laboratory Tests 07/21/16 0614: Anion Gap 12, Estimated GFR > 60, BUN/Creatinine Ratio 21.0, Magnesium 1.9, CBC w Diff Pending, WBC Pending, RBC Pending, Hgb Pending, Hct Pending, MCV Pending, MCH Pending, RDW Pending, Plt Count Pending, MPV Pending, PUBS MCHC Pending Assessment/Plan Assessment: Patient is a 71 year old male with PMH of atrial fibrillation on Xarelto, chronic diastolic , HTN, HLD, DM type 2 (not compliant with medication), morbid obesity, bladder stone, questionable gout, who came to the ED with progressive SOB on ambulation and at rest, LE edema, orthopnea, with acute worsening of symptoms since 4 days ago and dizziness of one day. # Acute CHF exacerbation Patient had bilateral fluid overload with pleural effusions, proBNP elevated at 688, bilateral pedal edema noted with paroxysmal nocturnal dyspnea present on history, most consistent with CHF exacerbation. * Cont Lasix 60mg BID PO as per cardio rec * Follow repeat echo - grossly normal * Cont to apprecaite cardio recs # Atrial fibrillation with RVR EKG on admission consistent with atrial fibrillation with a rate of 150, QTc 500. Patient takes cardizem 120 mg daily and metoprolol 100 mg daily at home. * Cont home med cardizem at increased dose of 240mg PO daily * Cont home med metoprolol 50mg PO BID * Cont home med Xarelto * Appreciate cardio recs # Elevated D-Dimer In the setting of elevated D-dimer at 339 and respiratory distress, PE was considered a possibility but it is unlikely as Doppler venous is negative and patient is clinically improving on Lasix. * Consider CTA if patient clinically deteriorates # Leukocytosis Most likely reactive in the absence of fever or URI symptoms. Reported some chills a few days ago when he slept with windows open at home but currently denies it. * Continue to monitor vital signs * Monitor off abx * Repeat CBC, trend WBC - trending down * Blood culture, sputum culture, strep. pneumonia and legionella antigens - NGTD * TRC neb tx and oxygen support as needed # Hematuria - Resolved Patient having hematuria since this morning. Most likely due to wilks cath which has been discontinued. * Cont strict I/Os # DM2 Reportedly not complaints with home med Metformin (stopped due to side effects) * Novolog SSI with accuchecks * Diabeitic diet # HTN * Continue losartan at home dose * Metoprolol and Lasix as above # Morbid obesity, HLD Patient reports he gained a lot of weight since he quit smoking 15 years ago. 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 Reports he has gout but does not recall if this was diagnosed by a doctor; also he has not taken any medication for a possible gout. * Follow Uric acid - sligtly elevated at 9.5 * Monitor for gout flares - Diabetic diet - Mild pain pathway - DVTppx with Xarelto - Full code Problem List: 1. Benign hypertension 2. Dyslipidemia 3. Morbid obesity 4. Paroxysmal atrial fibrillation 5. Rapid atrial fibrillation 6. CHF (congestive heart failure) 7. Atrial fibrillation with rapid ventricular response 8. Hypertension Pain Ratin Pain Location: 0 Pain Goal: Remain pain free Pain Plan: Mild path Tomorrow's Labs & Rationales: None Tomorrow's Labs & Rationales: None
[2016-07-21 07:47] VITALS: BP 124/72
[2016-07-21 08:49] LABS: ABSOLUTE BASOPHIL COUNT 0.1 /CUMM (0.0-0.2); ABSOLUTE EOSINOPHIL COUNT 0.3 /CUMM (0.0-0.7); ABSOLUTE LYMPH COUNT 1.7 /CUMM (1.2-3.4); ABSOLUTE MONOCYTE COUNT 0.9 /CUMM (0.10-0.60); BASOPHIL % 0.6 % (0.0-2.0); EOSINOPHIL % 2.6 % (0-5); GRANULOCYTE % 74.8 % (42.2-75.2); HEMATOCRIT 42.4 % (42-52); MEAN CORPUSCULAR HGB 25.8 PG (27.0-31.0); MEAN CORPUSCULAR HGB CONC 32.6 G/DL (33.0-37.0); MEAN CORPUSCULAR VOLUME 79.1 FL (80.0-94.0); MEAN PLATELET VOLUME 6.7 FL (7.4-10.4); PLATELET COUNT 429 /CUMM (130-400); RBC DISTRIBUTION WIDTH 18.1 % (11.5-14.5); RED BLOOD CELL CT 5.36 /CUMM (4.70-6.10)
[2016-07-21 08:55] VITALS: BP 124/72
[2016-07-21] MEDS ORDERED: CARDIZEM CD240 M1 PO (09:15)
--- NOTE | 2016-07-21 11:03 | PN- Cardiology ---
Subjective Subjective: Feeling well. Edema improving. No chest pain. No palpitations. No diaphoresis. No lightheadedness or dizziness. Objective Vital Signs and I&Os Vital Signs Date Time Temp Pulse Resp B/P B/P Pulse O2 O2 Flow FiO2 Mean Ox Delivery Rate 07/21 0855 65 124/72 07/21 0854 65 124/72 07/21 0747 97.7 65 22 124/72 95 Room Air 07/21 0000 Nasal 2.0L Cannula 07/20 2354 99.2 79 22 106/60 95 Room Air 07/20 2113 102 148/84 07/20 1800 118 146/80 07/20 1754 97.6 95 22 146/80 93 Room Air 07/20 1600 Nasal 2.0L Cannula 07/20 1130 95 Room Air Intake & Output 07/21 1600 07/21 0800 07/21 0000 07/20 1600 07/20 0800 07/20 0000 Intake Total 720 560 400 800 Output Total 400 Balance 720 160 400 800 Intake, Oral 720 560 400 800 Output, Urine 400 Patient 332 lb 358 lb Weight Weight Bed scale Bed scale Measurement Method Current Medications: Current Medications Sig/Serafin Start time Last Medication Dose Route Stop Time Status Admin Diltiazem HCl 240 MG DAILY 07/21 1000 AC 07/21 PO 0854 Diltiazem HCl 120 MG ONCE ONE 07/20 1730 DC 07/20 PO 07/20 1731 1800 Diltiazem HCl 120 MG DAILY 07/19 1153 DC 07/20 PO 1038 Furosemide 60 MG 7:30 AM, & 4:30 PM 07/19 1845 AC 07/21 PO 0822 Losartan Potassium 25 MG DAILY 07/17 1000 AC 07/21 PO 0854 Metoprolol Tartrate 50 MG BID 07/17 1033 AC 07/21 PO 0855 Rivaroxaban 20 MG 1700 07/17 1700 AC 07/20 PO 1710 Senna/Docusate Sodium 1 TAB DAILY 07/18 1333 AC 07/20 PO 1038 Trimethobenzamide HCl 200 MG Q6P PRN 07/18 1115 AC IM Results Last 48 Hrs of Labs/Mics: Laboratory Tests 07/21/1614: Anion Gap 12, Estimated GFR > 60, BUN/Creatinine Ratio 21.0, Magnesium 1.9, CBC w Diff NO MAN DIFF REQ, RBC 5.36, MCV 79.1 L, MCH 25.8 L, RDW 18.1 H, MPV 6.7 L, Gran % 74.8, Lymphocytes % 14.2 L, Monocytes % 7.8, Eosinophils % 2.6, Basophils % 0.6, Absolute Granulocytes 9.0 H, Absolute Lymphocytes 1.7, Absolute Monocytes 0.9 H, Absolute Eosinophils 0.3, Absolute Basophils 0.1, PUBS MCHC 32.6 L 07/20/16 0815: Anion Gap 12, Estimated GFR > 60, BUN/Creatinine Ratio 23.0, Magnesium 2.0, CBC w Diff NO MAN DIFF REQ, RBC 5.83, MCV 80.0, MCH 25.7 L, RDW 18.5 H, MPV 6.9 L , Gran % 77.9 H, Lymphocytes % 13.0 L, Monocytes % 6.8, Eosinophils % 2.0, Basophils % 0.3, Absolute Granulocytes 11.2 H, Absolute Lymphocytes 1.9, Absolute Monocytes 1.0 H, Absolute Eosinophils 0.3, Absolute Basophils 0, PUBS MCHC 32.1 L Assessment/Plan Assessment/Plan Assessment: 1. Atrial fibrillation 2. Acute on chronic diastolic heart failure 3. Gout Plan: * Continue by mouth Lasix, 40 mg twice a a day * Continue Xarelto, diltiazem, and other cardiac meds * Okay for discharge to home from cardiac standpoint. * Follow up in one week. Continue telemetry? No
[2016-07-21] MEDS ORDERED: FUROSEMIDE20 M1 PO (11:19)
--- NOTE | 2016-07-21 11:31 | NUR ---
PHYSICAL THERAPY: PT REFUSING PT AT THIS TIME DUE TO GOING HOME LATER TODAY
--- NOTE | 2016-07-21 13:08 | Discharge Summary ---
Visit Information Visit Dates Admission Date: 07/17/16 Discharge Date: 07/21/16 Hospital Course Course Attending Physician: KEVIN PRETTY MD Primary [facility]: Patient is a 71 year old male with a PMH of atrial fibrillation on Xarelto, chronic diastolic , HTN, HLD, DM type 2 (not compliant with medication), morbid obesity, bladder stone, questionable gout, who came to the ED on 07/17 with progressive dyspnea both on exertion and at rest, associated with LE edema and orthopnea for 4 days and dizziness of 1 day. # Acute CHF exacerbation Patient had bilateral fluid overload with pleural effusions, proBNP elevated at 688, bilateral pedal edema noted with paroxysmal nocturnal dyspnea present on history, most consistent with CHF exacerbation. Patient was on Lasix 30mg PO QD at home but he was reportedly not complaint with taking this medication. Patient was diuresed aggresively with IV Lasix 60mg BID with improvement in his respiratory status. IV Lasix was transitioned to PO accordingly and the patient was discharged on Lasix 40 mg BID PO per cardio rec. Repeat echo was only remarkable for Left ventricular hypertrophy, trace mitral regurgitation and trace tricuspid regurgitation. LF function was grossly normal. # Atrial fibrillation with RVR EKG on admission was consistent with atrial fibrillation with a rate of 150, QTc 500. Patient was reportedly complaint with his home meds Cardizem CD 120 mg daily and metoprolol 100 mg daily. On admission patient was placed on cardizem drip at 15 cc/hr initially and required a few IV pushes of Cardizem and Lopressor. With improvement in his rate, cardizem drip was tapered and transitioned to PO Carizem which was titrated. Patient was also kept on home med metoprolol 50mg PO BID. Patient was discharged on Cardizem CD 240mg PO daily. # Elevated D-Dimer In the setting of elevated D-dimer at 339 and respiratory distress, PE was considered a possibility but it was deemed unlikely as Doppler venous is negative and patient was clinically improving on Lasix. # Leukocytosis Most likely reactive in the absence of fever or URI symptoms. Reported some chills a few days ago when he slept with windows open at home but currently denies it. WBC trended down with improvement in his clinical presentation. # Hematuria - Resolved Patient having hematuria since this morning. Most likely due to wilks cath which was discontinued. Hematuria resolved afterwards. # DM2 Patient was kept on Novolog SSI with accuchecks and a diabeitic diet. # HTN Patient was kept on home dose of losartan and metoprolol in addition to Lasix as discussed above. Allergies: Coded Allergies: meperidine (From DEMEROL) (Intermediate, NAUSEA 07/17/16) penicillin G (Intermediate, NAUSEA 07/17/16) Disposition Summary Disposition Principal Diagnosis: Acute CHF exacerbation Additional Diagnosis: Afib with RVR Discharge Disposition: home health services Discharge Instructions General Discharge Information Code Status: Full Code Patient's Diet: Diabetic Patient's Activity: As tolerated Follow-Up Instructions/Appts: Please follow up with your primary care physician and human resources trainer Dr. Reynolds within 1 week of discharge. Medications at Discharge Discharge Medications: Stop taking the following medications: Diltiazem HCl (Diltiazem 24HR ER) 120 MG CAP.ER.24H ORAL DAILY Qty = 90 Furosemide (Furosemide) 20 MG TABLET ORAL DAILY Continue taking these medications: Rivaroxaban (Xarelto) 20 MG TABLET 1 Tablet ORAL DAILY Qty = 90 Instructions: with food Comments: Last Taken: 07/20/16 Time: 5 PM Metoprolol Succinate (Metoprolol Succinate) 100 MG TAB.ER.24H 1 Tablet ORAL DAILY Qty = 90 Comments: Last Taken: 07/21/16 Time: 9 AM Losartan Potassium (Losartan Potassium) 25 MG TABLET 1 Tablet ORAL DAILY Qty = 90 Comments: Last Taken: 07/21/16 Time: 9 AM Start taking the following new medications: Diltiazem HCl (Cardizem Cd) 240 MG CAP.ER.24H 240 Milligram ORAL DAILY Qty = 30 No Refills Comments: Last Taken: 07/21/16 Time: 9 AM Furosemide (Furosemide) 20 MG TABLET 40 Milligram ORAL 7:30AM & 4:30PM Days = 30 No Refills Comments: Last Taken: 07/21/16 Time: 8:30 AM Copies To: YOVANY YUNG DO, MD,VIKTOR Martinez MD Review Statement Documenting Attending: KEVIN PRETTY MD Other Findings: The patient was seen and discussed with house staff. Agree with plan of care upon discharge.
== END 2016-07-21 12:40 | DRG 291 ==
LOC: ERH 03:34 → 1NO 04:55 → ERHI 04:55 → ENRESERV 06:36 → 1NO 08:24 → ENPENDDIS 07-21 11:33 → 1NO 07-21 12:40
PROVIDERS: Pediatrics; Student in an Organized Health Care Education/Training Program; ADMIT Student in an Organized Health Care Education/Training Program
DX: I11.0 Hypertensive heart disease with heart failure (principal); J96.21 Acute and chronic respiratory failure with hypoxia; I47.2 Ventricular tachycardia; Z68.43 Body mass index [BMI] 50.0-59.9, adult; Z79.01 Long term (current) use of anticoagulants; I50.33 Acute on chronic diastolic (congestive) heart failure; I48.0 Paroxysmal atrial fibrillation; E66.01 Morbid (severe) obesity due to excess calories; E11.9 Type 2 diabetes mellitus without complications; R31.9 Hematuria, unspecified; Z87.891 Personal history of nicotine dependence
CPT/HCPCS: 1NSP; 36415; 81001; 82436; 87040; 87070; 87086; 87449; 87450; 93005; 93010; 93306; 93970; 96374; 96375; 97116-GO; 97161-GP; 97530-GO; 99291; J0131; J1940; J2405; J3250; J3490